=== PATIENT | female | born 1970 | race Two or more races ===

== ENCOUNTER 2024-03-14 17:04 | Inpatient (IN) | payer OTHER, BC ==
[~2024-03-14] VITALS: Ht 167.6 cm; Wt 87.6 kg
[2024-03-14] VITALS (11 sets, daily range): BP systolic 98–119; BP diastolic 44–82; PULSE 78–98; RESP 17–28; TEMP 99–99.3; O2SAT 94–100
[2024-03-14 17:48] LABS: Urine Bacteria None Seen /hpf (None Seen)
[2024-03-14 17:54] LABS: Urine Blood Negative /uL (Negative); Urine Clarity Clear (Clear); Urine Color Light-Yellow (Yellow); Urine Protein, UAD TRACE (Negative); Urine Urobilinogen Normal (Negative); Urine WBC 5 /hpf (0 - 5); Urine pH 6.5 (5.0-9.0)
[2024-03-14 17:57] LABS: Urine Specific Gravity > 1.050 (1.001-1.035)
[2024-03-14] MEDS: HEPARIN DRIP/D5W 100UNITS/ML 250 ML IV SCH (18:00)
--- NOTE | 2024-03-14 18:09 | DVH ---
EXAM: XY CHEST PORTABLE CLINICAL HISTORY: large PE TECHNIQUE: Single AP view of the chest WID: COMPARISON: None FINDINGS: Lines and tubes: None Chest: The heart size and pulmonary vasculature is within normal limits. No pleural effusion or pneumothorax. A few subtle patchy opacities in the left lung The osseous structures are grossly intact. IMPRESSION: A few subtle patchy opacities in the left lung which could be superimposed soft tissues or early mult ifocal pneumonia
[2024-03-14 18:14] LABS: Basophils # (auto) 0 10 ^3/uL (0-0.2); Basophils % (auto) 0.3 % (0.0-2.0); Eosinophils # (auto) 0 10 ^3/uL (0-0.8); Eosinophils % (auto) 0.2 % (0.0-7.0); Hematocrit 36.3 % (36.0-46.0); Hemoglobin 12.2 g/dL (12.2-16.2); Lymphocytes # (auto) 1.2 10 ^3/uL (0.4-5.4); Lymphocytes % (auto) 10.6 % (10.0-50.0); Mean Corpuscular Hemoglobin 29.7 pg (28.0-32.0); Mean Corpuscular Hgb Conc. 33.7 g/dL (32.0-36.0); Mean Corpuscular Volume 88.1 fL (80.0-100.0); Monocytes # (auto) 1.2 10 ^3/uL (0-1.3); Monocytes % (auto) 10.7 % (0.0-12.0); Neutrophils # (auto) 8.6 10 ^3/uL (1.6-8.6); Neutrophils % (auto) 78.2 % (37.0-80.0); Platelet Count (auto) 318 10^3/uL (140-450); Red Blood Cells 4.11 10^6/uL (4.0-5.20); Red Cell Distribution Width 13.3 % (11.8-14.3)
--- NOTE | 2024-03-14 18:26 | ED.PDOC ---
HPI Comments 83-year-old female with past medical history of multiple sclerosis presented from urgent care as on the CT angio, she had bilateral extensive pulmonary embolism. Patient has been having shortness of breath, cough, fever, chills for last five days. She also mentioned associated chest pain that she felt whenever she would was taking deep inspiration. Patient went to urgent Care, initial SpO2 was 83% on room air, patient was connected on oxygen, she was later maintaining 93% on 2 L. Patient's labs done at urgent care today revealed WBC count of 11.2, platelet count of 302 sodium 135, potassium 3.4 BNP 637 troponin i-STAT 0.31(normal range 0 to 0.05 per labs at urgent care). Chest x-ray done at urgent care revealed findings most consistent with pneumonia involving the left upper lobe with a large area of alveolar type infiltrates seen peripherally and anteriorly. CT angiography chest done today revealed : There are bilateral extensive pulmonary embolism. Both lungs showed scattered areas of ground-glass interstitial change and consolidation, most severe in the left lung likely representing regions of pulmonary infarction. The main pulmonary artery is prominent consistent with pulmonary arterial hypertension. She mentioned she is not on any blood thinners, did not have any recent surgery, no history of any brain bleed, brain aneurysm, no history of any melena, hematochezia, or bleeding from any other site. On presenting to the ED, patient was being initial vitals, temperature 98.6, pulse rate 91, respiratory rate 26, blood pressure 134/87, and patient was initially on 5 L of oxygen through nasal cannula, was desaturating and later started on Oxymizer, was maintaining 94% on 10 L. Past medical history Multiple sclerosis Past surgical history no surgeries Social history denied alcohol, smoking, marijuana and any other drug intake Allergic history No known allergies Medication history Rizatriptan, folic acid, rituximab infusion every 6 months Family history PE in mother Lung cancer in father type 1DM in brother Review of system As described in HPI Examination General Appearance: Alert, Oriented X3, Cooperative, No acute distress Respiratory: Clear to auscultation, Normal air movement, on nasal cannula later Oxymizer Cardiovascular: Normal S1, Normal S2 Abdominal: Normal bowel sounds Extremities: No tenderness Neuro: Normal speech and tone ED course 1849 : Dr. Paige, was informed over the phone about the patient condition. Attestation note: Dr. Stanley: I was the supervising attending for this ED encounter. Please see the resident's notes. I was available for questions and consultations. I have personally seen and evaluated this patient. Differential diagnosis: DDx include ACS, unstable angina, anxiety, PE, pneumothroax, neoplasm, cardiac ischemia, COPD, asthma, CHF, pleural effusion, tobacco abuse, pneumonia, hypoxia, hypercapnia, anemia., infection/sepsis., pulmonary edema. Asthma, Cardiac tamponade, infection. MDM: Patient presented with the above HPI.---dyspnea/pulmonary emboli---workup was initiated. patient was found with the above mentioned diagnosis. Patient was given: Patient was placed on supplemental oxygen. Patient ED course and VS have been stabilized. Patient has been reassessed in the ED and remained in a stable condition. Cardiology was consulted who took the patient to the paint laboratory technician for thrombectomy. Pertinent incidental findings were discussed with the patient and/or family. Patient/family voices understanding and is agreeable with plan. Patient has been observed in the ED adequate length of time to insure improvement/stability. Contract Clerk Dr. Abhay coto said that he will start the patient on Angiomax and said to not give heparin at this time patient was admitted to the medicine team for further evaluation and treatment of their presentation. All the reports of any imaging studies that were ordered by myself were reviewed by myself. Chief Complaint: Shortness of Breath Time Seen by MD: 17:34 Primary Care Provider: EMELY Reviewed Notes: Nurses Notes, Medications, Allergies Allergies: Coded Allergies: NO KNOWN ALLERGIES (Unverified , 03/14/24) Home Meds Active Scripts Furosemide (Lasix) 20 Mg Tb, 1 TAB PO QAM, #30 TAB 0 Refills Prov:MO RICCI MD 03/18/24 Apixaban Base (ELIQUIS) 5 Mg Tab, 5 MG PO BID for 30 Days, #60 TAB Prov:MO RICCI MD 03/18/24 Apixaban Base (ELIQUIS) 5 Mg Tab, 10 MG PO BID for 4 Days, #16 TAB Prov:MO RICCI MD 03/18/24 Information Source: Patient, Transfer Record Mode of Arrival: EMS EKG EKG : Comments EKG revealed T-wave inversion in lead III, AVF, V3, V4, V5 Was a procedure done? Was a procedure done?: No CP Differential Dx Differential Diagnosis: Electrolyte Disorder, Heart Failure, Hypoxia, Pulmonary Embolus Differential Diagnosis: CHF Differential Diagnosis: Myocardial Infarction, Pericarditis, Pneumonia, Pulmonary Embolus X-Ray, Labs, Meds, VS Vital Signs Date Time Temp Pulse Resp B/P (MAP) Pulse Ox O2 Delivery O2 Flow Rate FiO2 03/14/24 18:29 98 Oxymizer 10 N/A 03/14/24 18:29 20 98 Oxymizer 10 N/A 03/14/24 18:29 98 Oxymizer 10.0 03/14/24 18:27 90 24 115/63 (80) 99 03/14/24 18:09 93 03/14/24 18:08 80 Non-Rebreather 15 N/A 03/14/24 18:02 100 28 115/63 (80) 78 03/14/24 17:31 100 03/14/24 17:06 98.6 91 26 134/64 (87) 97 Lab Test 03/14/24 18:09 03/14/24 17:59 03/14/24 17:32 Range/Units Blood Gas Specimen Type Arterial Blood Gas Sample Site Right radial Blood Gas Patient Temperature 37.0 Arterial Blood Date Drawn [id number] Arterial Blood pH 7.525 H 7.350-7.450 Arterial Blood Partial Pressure CO2 26.5 L 32.0-45.0 mmHg Arterial Blood Partial Pressure O2 43.3 *L 83.0-108.0 mmHg Arterial Blood HCO3 21.4 21.0-28.0 mmol/L Arterial Blood Oxygen Saturation 82.7 *L 94.0-98.0 % Arterial Blood Base Excess -0.1 -2.0-3.0 mmol/L Arterial Blood Oxyhemoglobin 81.9 L 94.0-98.0 % Arterial Blood Carboxyhemoglobin 0.5 0.5-1.5 % Arterial Blood Methemoglobin 0.5 0.0-1.5 % Earl Test Yes Blood Gas Total Hemoglobin 12.80 12.0-16.0 g/dL Blood Gas Modality Room air FiO2 % 21.0 Blood Gas Critical Value Read Back Yes Blood Gas Notified Whom Dr. mae Blood Gas Notified Time [id number] Blood Gas Notified By Amirah noe White Blood Count 11.0 H 4.4-10.8 10^3/uL Red Blood Count 4.11 4.0-5.20 10^6/uL Hemoglobin 12.2 12.2-16.2 g/dL Hematocrit 36.3 36.0-46.0 % Mean Corpuscular Volume 88.1 80.0-100.0 fL Mean Corpuscular Hemoglobin 29.7 28.0-32.0 pg Mean Corpuscular Hemoglobin Concent 33.7 32.0-36.0 g/dL Red Cell Distribution Width 13.3 11.8-14.3 % Platelet Count 318 140-450 10^3/uL Mean Platelet Volume 7.6 6.9-10.8 fL Neutrophils (%) (Auto) 78.2 37.0-80.0 % Lymphocytes (%) (Auto) 10.6 10.0-50.0 % Monocytes (%) (Auto) 10.7 0.0-12.0 % Eosinophils (%) (Auto) 0.2 0.0-7.0 % Basophils (%) (Auto) 0.3 0.0-2.0 % Neutrophils # (Auto) 8.6 1.6-8.6 10 ^3/uL Lymphocytes # (Auto) 1.2 0.4-5.4 10 ^3/uL Monocytes # (Auto) 1.2 0-1.3 10 ^3/uL Eosinophils # (Auto) 0 0-0.8 10 ^3/uL Basophils # (Auto) 0 0-0.2 10 ^3/uL Nucleated Red Blood Cells 0.0 % Prothrombin Time 12.8 H 9.3-11.8 sec Prothrombin Time INR 1.23 H 0.9-1.15 Activated Partial Thromboplast Time 35.1 H 24.5-34.5 SEC D-Dimer, Quantitative 4.30 H 0.0-0.49 mg/L FEU Sodium Level 140 136-145 mmol/L Potassium Level 3.6 3.5-5.1 mmol/L Chloride Level 106 98-107 mmol/L Carbon Dioxide Level 23 20-31 mmol/L Anion Gap 11 5-15 Blood Urea Nitrogen 10 9-23 mg/dL Creatinine 0.55 0.550-1.02 mg/dL Glomerular Filtration Rate Calc 109 >90 mL/min BUN/Creatinine Ratio 18.2 10.0-20.0 Serum Glucose 109 H 74-106 mg/dL Calcium Level 8.7 8.7-10.4 mg/dL Magnesium Level 2.2 1.6-2.6 mg/dL Total Bilirubin 0.7 0.2-1.0 mg/dL Aspartate Amino Transferase (AST) 40 13-40 U/L Alanine Aminotransferase (ALT) 36 7-40 U/L Alkaline Phosphatase 54 46-116 U/L Troponin I High Sensitivity 150 *H </=34 ng/L B-Type Natriuretic Peptide 436.94 0-100 pg/mL Total Protein 5.3 L 5.7-8.2 g/dL Albumin 3.6 3.2-4.8 g/dL Urine Color Light-yellow Yellow Urine Clarity Clear Clear Urine pH 6.5 5.0-9.0 Urine Specific Otto > 1.050 H 1.001-1.035 Urine Protein Trace H Negative Urine Ketones Negative Negative Urine Blood Negative Negative /uL Urine Nitrite Negative Negative Urine Bilirubin Negative Negative Urine Urobilinogen Normal Negative mg/dL Urine Leukocyte Esterase Negative Negative /uL Urine RBC 1 0 - 4 /hpf Urine WBC 5 0 - 5 /hpf Urine Squamous Epithelial Cells Few <5 /hpf Urine Bacteria None seen None Seen /hpf Urine Glucose Normal Normal mg/dL Time of 1ST Reevaluation: 18:10 ([address] Andrade radiologist, mentioned he left the hospital and we will be available on Sunday.We called on-call machine set up operator paper goods, Dr. Persaud. Mentions that he does not do mechanical thrombectomy. Called Dr. Esteban, mentioned she is not radiosonde operator. Called Dr. Foreman, [place] Reevaluation 1ST: Worsened Time of 2ND Reevaluation: 18:15 (Dr. Gonzáles, machine set up operator paper goods at bedside) Reevaluation 2ND: Unchanged Time of 3RD Reevaluation: 18:57 (Patient planned for mechanical thrombectomy by Dr Gonzáles. ) Reevaluation 3RD: Unchanged Patient Education/Counseling: Diagnosis, Treatment Family Education/Counseling: No Family Present Comments Patient presented with the chest pain, shortness of breath, fever, cough. workup was initiated. Notes from the urgent care were reviewed. CT angio report from urgent care revealed pulmonary embolism. Patient already received 80 mg Lovenox in the [facility] as per records. Patient was initially on nasal cannula but was desaturating. She was started on Oxymizer. We called Dr. Andrade radiologist, mentioned he left the hospital and we will be available on Sunday. We called on-call machine set up operator paper goods, Dr. Persaud. Mentions that he does not do mechanical thrombectomy. Called Dr. Esteban, mentioned she is not radiosonde operator. Called Dr. Foreman, he is out of the country. Later Dr. gonzáles was contacted. Contract Clerk Dr Gonzáles came at bedside. Lower extremity Doppler was negative for DVT. Patient was planned for mechanical thrombectomy. Patient has been observed in the ED adequate length of time to insure improvement/stability. patient was admitted to the medicine team for further evaluation and treatment of their presentation. All the reports of any imaging studies that were ordered by myself were reviewed by myself. Departure 1 Departure Time of Disposition: 18:31 Impression: Primary Impression: Pulmonary embolism Additional Impressions: Acute hypoxic respiratory failure Elevated troponin Disposition: ADMITTED INPATIENT Admit to: ICU Condition: Critical e-Prescriptions Furosemide (Lasix) 20 Mg Tb 1 TAB PO QAM, #30 TAB 0 Refills Prov: MO RICCI MD 03/18/24 Apixaban Base (ELIQUIS) 5 Mg Tab 5 MG PO BID for 30 Days, #60 TAB Prov: MO RICCI MD 03/18/24 Apixaban Base (ELIQUIS) 5 Mg Tab 10 MG PO BID for 4 Days, #16 TAB Prov: MO RICCI MD 03/18/24 Discharged With: Self Critical Care Note Critical Care Time?: Yes (1 hr-critical care time only) Stability Stability form required: No Heart Score Heart Score: Heart Score Response (Comments) Value History Highly Suspicious 2 EKG Repolarization Disturb 1 Age 45-64 1 Risk Factors No known risk factors 0 Troponin >3 x's Normal limit 2 Total 6 GENARO MAE Mar 14, 2024 18:26 HARLEEN STANLEY DO Mar 18, 2024 23:11
[2024-03-14 18:27] LABS: Alanine Aminotransferase 36 U/L (7-40); Alkaline Phosphatase 54 U/L (46-116); Anion Gap 11 (5-15); Blood Urea Nitrogen 10 mg/dL (9-23); Calcium 8.7 mg/dL (8.7-10.4); Carbon Dioxide 23 mmol/L (20-31); Chloride 106 mmol/L (98-107); Glucose 109 mg/dL (74-106); Magnesium 2.2 mg/dL (1.6-2.6); Potassium 3.6 mmol/L (3.5-5.1); Sodium 140 mmol/L (136-145)
[2024-03-14 18:28] LABS: Albumin 3.6 g/dL (3.2-4.8); Aspartate Aminotransferase 40 U/L (13-40); BUN/Creatinine Ratio 18.2 (10.0-20.0); Bilirubin, Total 0.7 mg/dL (0.2-1.0); Total Protein 5.3 g/dL (5.7-8.2)
[2024-03-14 18:38] LABS: INR 1.23 (0.9-1.15); Partial Thromboplastin Time 35.1 SEC (24.5-34.5); Prothrombin Time 12.8 sec (9.3-11.8)
--- NOTE | 2024-03-14 18:48 | DVH ---
Bilateral lower extremity venous duplex Clinical History: rule out DVT Comparison: None Technique: Duplex Doppler evaluation of the deep venous systems of both lower extremities from the common femora l veins to the popliteal veins including color Doppler and spectral/pulsed waveform analysis was perf ormed. Findings: RIGHT SIDE: The common femoral vein demonstrates appropriate compressibility and waveform variability. There is compressibility/patency of the great saphenous vein at the proximal thigh. The femoral vein demonstrates appropriate compressibility and waveform variability. The deep femoral vein demonstrates appropriate compressibility and waveform variability. The popliteal vein demonstrates appropriate compressibility and waveform variability. There is normal compressibility at the tibioperoneal trunk. LEFT SIDE: The common femoral vein demonstrates appropriate compressibility and waveform variability. There is compressibility/patency of the great saphenous vein at the proximal thigh. The femoral vein demonstrates appropriate compressibility and waveform variability. The deep femoral vein demonstrates appropriate compressibility and waveform variability. The popliteal vein demonstrates appropriate compressibility and waveform variability. There is normal compressibility at the tibioperoneal trunk. Impression: 1. No right or left femoropopliteal venous thrombosis. HS:Y
--- NOTE | 2024-03-14 19:14 | DVHINCON2 ---
Date Seen: Mar 14, [address] Hernández Reason for Consultation Pulmonary embolism History of Present Illness 83-year-old lady who has a history of one week with shortness of breath. She was seen in urgent Care and was sent for an urgent CT angio. She was found to have extensive bilateral pulmonary embolism. She has been progressively short of breath and has been dyspneic with associated chest pressure. She has found it difficult to breathe. No previous history of pulmonary embolism. No trauma to her lower extremities. No evidence or history of hypercoagulability. No history of rheumatologic disorders or collagen vascular disease. No history of autoimmune disorders. No previous history of pulmonary embolization and or chronic thromboembolic pulmonary hypertension. No recent swelling of her lower extremities. She is a nondrinker and a nonsmoker no recent bleeding. Past Medical History Patient has a history of multiple sclerosis and she gets infusions twice a year. No history of diabetes hypertension congestive heart failure cardiac pulmonary or other abnormalities. Past Surgical History None Family History No significant family history Social History Nondrinker nonsmoker. Patient states she is Allergies: Coded Allergies: NO KNOWN ALLERGIES (Unverified , 03/14/24) Current Medications Current Medications Medications (Trade) Dose Ordered Sig/Coby Route PRN Reason Start Time Stop Time Status Last Admin Heparin Sodium/ Dextrose 250 ml @ 15 mls/hr [id number] IV 03/14/24 18:00 Review of Systems Review of systems otherwise noncontributory. No history of neurological impairment. Cardiac and respiratory as noted above. Hematologically oncologic respiratory as mentioned. Noted history from a neurologic standpoint of multiple sclerosis. Vital Signs Vital Signs Date Time Temp Pulse Resp B/P (MAP) Pulse Ox O2 Delivery O2 Flow Rate FiO2 03/14/24 18:29 20 98 Oxymizer 10 N/A 03/14/24 18:27 90 115/63 (80) 03/14/24 17:06 98.6 Physical Exam Her blood pressure is 115/63 with an O2 saturation of 93 on an Oxymizer. Her pulse is 90. HEENT examination is otherwise unremarkable already well hydrated. Strabismus of the left eye. Moderate jugular distention. No carotid bruits. Patient is slightly tachypneic. Heart exam reveals a pronounced P2 component. No significant murmurs. Ventricular lift not noted. 1/6 systolic ejection murmur at left sternal border. Abdominal examination is unremarkable extremities show adequate perfusion without clubbing or cyanosis no significant edema. Neurologically the patient is intact without focal neurologic deficits. Integumentary is otherwise within normal limits. No evidence for swelling of the lower extremities. Labs/Diagnostic Data EKG shows a sinus rhythm with inferior lateral ST segment changes suggesting ischemia There is a CT scan showing extensive bilateral pulmonary emboli. The CTA was obtained as an outpatient. Labs Test 03/14/24 17:59 03/14/24 17:32 Range/Units White Blood Count 11.0 H 4.4-10.8 10^3/uL Red Blood Count 4.11 4.0-5.20 10^6/uL Hemoglobin 12.2 12.2-16.2 g/dL Hematocrit 36.3 36.0-46.0 % Mean Corpuscular Volume 88.1 80.0-100.0 fL Mean Corpuscular Hemoglobin 29.7 28.0-32.0 pg Mean Corpuscular Hemoglobin Concent 33.7 32.0-36.0 g/dL Red Cell Distribution Width 13.3 11.8-14.3 % Platelet Count 318 140-450 10^3/uL Mean Platelet Volume 7.6 6.9-10.8 fL Neutrophils (%) (Auto) 78.2 37.0-80.0 % Lymphocytes (%) (Auto) 10.6 10.0-50.0 % Monocytes (%) (Auto) 10.7 0.0-12.0 % Eosinophils (%) (Auto) 0.2 0.0-7.0 % Basophils (%) (Auto) 0.3 0.0-2.0 % Neutrophils # (Auto) 8.6 1.6-8.6 10 ^3/uL Lymphocytes # (Auto) 1.2 0.4-5.4 10 ^3/uL Monocytes # (Auto) 1.2 0-1.3 10 ^3/uL Eosinophils # (Auto) 0 0-0.8 10 ^3/uL Basophils # (Auto) 0 0-0.2 10 ^3/uL Nucleated Red Blood Cells 0.0 % Prothrombin Time 12.8 H 9.3-11.8 sec Prothrombin Time INR 1.23 H 0.9-1.15 Activated Partial Thromboplast Time 35.1 H 24.5-34.5 SEC D-Dimer, Quantitative 4.30 H 0.0-0.49 mg/L FEU Sodium Level 140 136-145 mmol/L Potassium Level 3.6 3.5-5.1 mmol/L Chloride Level 106 98-107 mmol/L Carbon Dioxide Level 23 20-31 mmol/L Anion Gap 11 5-15 Blood Urea Nitrogen 10 9-23 mg/dL Creatinine 0.55 0.550-1.02 mg/dL Glomerular Filtration Rate Calc 109 >90 mL/min BUN/Creatinine Ratio 18.2 10.0-20.0 Serum Glucose 109 H 74-106 mg/dL Calcium Level 8.7 8.7-10.4 mg/dL Magnesium Level 2.2 1.6-2.6 mg/dL Total Bilirubin 0.7 0.2-1.0 mg/dL Aspartate Amino Transferase (AST) 40 13-40 U/L Alanine Aminotransferase (ALT) 36 7-40 U/L Alkaline Phosphatase 54 46-116 U/L Troponin I High Sensitivity 150 *H </=34 ng/L B-Type Natriuretic Peptide 436.94 0-100 pg/mL Total Protein 5.3 L 5.7-8.2 g/dL Albumin 3.6 3.2-4.8 g/dL Urine Color Light-yellow Yellow Urine Clarity Clear Clear Urine pH 6.5 5.0-9.0 Urine Specific [place] > 1.050 H 1.001-1.035 Urine Protein Trace H Negative Urine Ketones Negative Negative Urine Blood Negative Negative /uL Urine Nitrite Negative Negative Urine Bilirubin Negative Negative Urine Urobilinogen Normal Negative mg/dL Urine Leukocyte Esterase Negative Negative /uL Urine RBC 1 0 - 4 /hpf Urine WBC 5 0 - 5 /hpf Urine Squamous Epithelial Cells Few <5 /hpf Urine Bacteria None seen None Seen /hpf Urine Glucose Normal Normal mg/dL Assessment Extensive bilateral pulmonary emboli. Patient has been given Lovenox at around 3:00 a.m. this afternoon. 80 mg subcutaneously. There is no evidence for a DVT. Patient was spoken to regarding possible thrombectomy. Associated history of multiple sclerosis controlled. Plan/Recommendation I did discuss the case in detail with patient. She agrees on thrombectomy. Prefers that over thrombolytic therapy. We will call in finishing lab technician and proceed with pulmonary thrombectomy. Approximately 45-55 minutes were undertaken in coordinating the care and evaluating the patient. The finishing lab technician crew was called in. In artery rib was called in for urgent thrombectomy. Plan discussed with: Patient Date of Service: Mar 14, 2024 Billing Provider: MONICA MORGAN Sr., MD Cardiology Common Codes: 79699-[id number] INP/OBS CARE (High) Cardiology Secondary Visit Cod: [id number] CARE PLAN ADDL 30MIN MONICA MORGAN Sr., MD Mar 14, 2024 19:14
[2024-03-14] MEDS: IODIXANOL 320MG/ML 100ML BTL IV ONE (19:18)
[2024-03-14] MEDS: HEPARIN IN NS 1000Units/500mL 1,500 ML ONE (19:18)
--- NOTE | 2024-03-14 19:26 | DVHHP2 ---
History of Present Illness Reason for Visit: shortness of breath History of Present Illness 83-year-old female with past medical history of multiple sclerosis presented from urgent care as on the CT angio, she had bilateral extensive pulmonary embolism. Patient has been having shortness of breath, cough, fever, chills for last five days. She also mentioned associated chest pain that she felt whenever she would was taking deep inspiration. Patient went to urgent Care, initial SpO2 was 83% on room air, patient was connected on oxygen, she was later maintaining 93% on 2 L. Patient's labs done at urgent care today revealed WBC count of 11.2, platelet count of 302 sodium 135, potassium 3.4 BNP 637 troponin i-STAT 0.31(normal range 0 to 0.05 per labs at urgent care). Chest x-ray done at urgent care revealed findings most consistent with pneumonia involving the left upper lobe with a large area of alveolar type infiltrates seen peripherally and anteriorly. CT angiography chest done today revealed : There are bilateral extensive pulmonary embolism. Both lungs showed scattered areas of ground-glass interstitial change and consolidation, most severe in the left lung likely representing regions of pulmonary infarction. The main pulmonary artery is prominent consistent with pulmonary arterial hypertension. She mentioned she is not on any blood thinners, did not have any recent surgery, no history of any brain bleed, brain aneurysm, no history of any melena, hematochezia, or bleeding from any other site. On presenting to the ED, patient was being initial vitals, temperature 98.6, pu lse rate 91, respiratory rate 26, blood pressure 134/87, and patient was initially on 5 L of oxygen through nasal cannula, was desaturating and later started on Oxymizer, was maintaining 94% on 10 L. Patient was seen in STAT Cardiology consult, was taken emergently to the liaison inspection laboratory assistant for Mechanical Thrombectomy. Past Medical History Multiple Sclerosis Review of Systems Constitutional: No: Fever, Chills, Sweats, Weakness, Malaise, Other Eyes: No: Pain, Vision change, Conjunctivae inflammation, Eyelid inflammation, Other, Redness ENT: No: Ear pain, Ear discharge, Nose pain, Nose discharge, Nose congestion, Mouth pain, Mouth swelling, Throat pain, Throat swelling, Other Respiratory: Shortness of breath, SOB with excertion, Wheezing Cardiovascular: No: Chest Pain, Palpitations, Orthopnea, Paroxysmal Noc. Dyspnea, Edema, Lt Headedness, Other Gastrointestinal: No: Nausea, Vomiting, Abdominal Pain, Diarrhea, Constipation, Melena, Hematochezia, Other Genitourinary: No Dysuria, No Frequency, No Incontinence, No Hematuria, No Retention, No Other Musculoskeletal: No: other, neck pain, shoulder pain, arm pain, back pain, hand pain, leg pain, foot pain Skin: No: Rash, Lesions, Jaundice, Bruising, Other Neurological: No: Weakness, Numbness, Incoordination, Change in speech, Confusion, Seizures, Other Allergies: Coded Allergies: NO KNOWN ALLERGIES (Unverified , 03/14/24) Medications Current Medications Medications Dose Ordered Sig/Coby Route Start Time Stop Time Status Last Admin Dose Admin Heparin Sodium/ Dextrose 250 ml @ 15 mls/hr [id number] IV 03/14/24 18:00 Exam Vital Signs Vital Signs Date Time Temp Pulse Resp B/P (MAP) Pulse Ox O2 Delivery O2 Flow Rate FiO2 03/14/24 18:29 20 98 Oxymizer 10 N/A 03/14/24 18:27 90 115/63 (80) 03/14/24 17:06 98.6 General Appearance: Alert, Oriented X3, Cooperative, moderate distress HEENT: Atraumatic, PERRLA, EOMI Respiratory: Other (Wheezing) Cardiovascular: Regular rate, Normal S1, Normal S2, No murmurs Abdominal: Normal bowel sounds, Soft Extremities: No clubbing Psych/Mental Status: Mental status NL Labs/Xrays Labs Test 03/14/24 17:59 03/14/24 17:32 Range/Units White Blood Count 11.0 H 4.4-10.8 10^3/uL Red Blood Count 4.11 4.0-5.20 10^6/uL Hemoglobin 12.2 12.2-16.2 g/dL Hematocrit 36.3 36.0-46.0 % Mean Corpuscular Volume 88.1 80.0-100.0 fL Mean Corpuscular Hemoglobin 29.7 28.0-32.0 pg Mean Corpuscular Hemoglobin Concent 33.7 32.0-36.0 g/dL Red Cell Distribution Width 13.3 11.8-14.3 % Platelet Count 318 140-450 10^3/uL Mean Platelet Volume 7.6 6.9-10.8 fL Neutrophils (%) (Auto) 78.2 37.0-80.0 % Lymphocytes (%) (Auto) 10.6 10.0-50.0 % Monocytes (%) (Auto) 10.7 0.0-12.0 % Eosinophils (%) (Auto) 0.2 0.0-7.0 % Basophils (%) (Auto) 0.3 0.0-2.0 % Neutrophils # (Auto) 8.6 1.6-8.6 10 ^3/uL Lymphocytes # (Auto) 1.2 0.4-5.4 10 ^3/uL Monocytes # (Auto) 1.2 0-1.3 10 ^3/uL Eosinophils # (Auto) 0 0-0.8 10 ^3/uL Basophils # (Auto) 0 0-0.2 10 ^3/uL Nucleated Red Blood Cells 0.0 % Prothrombin Time 12.8 H 9.3-11.8 sec Prothrombin Time INR 1.23 H 0.9-1.15 Activated Partial Thromboplast Time 35.1 H 24.5-34.5 SEC D-Dimer, Quantitative 4.30 H 0.0-0.49 mg/L FEU Sodium Level 140 136-145 mmol/L Potassium Level 3.6 3.5-5.1 mmol/L Chloride Level 106 98-107 mmol/L Carbon Dioxide Level 23 20-31 mmol/L Anion Gap 11 5-15 Blood Urea Nitrogen 10 9-23 mg/dL Creatinine 0.55 0.550-1.02 mg/dL Glomerular Filtration Rate Calc 109 >90 mL/min BUN/Creatinine Ratio 18.2 10.0-20.0 Serum Glucose 109 H 74-106 mg/dL Calcium Level 8.7 8.7-10.4 mg/dL Magnesium Level 2.2 1.6-2.6 mg/dL Total Bilirubin 0.7 0.2-1.0 mg/dL Aspartate Amino Transferase (AST) 40 13-40 U/L Alanine Aminotransferase (ALT) 36 7-40 U/L Alkaline Phosphatase 54 46-116 U/L Troponin I High Sensitivity 150 *H </=34 ng/L B-Type Natriuretic Peptide 436.94 0-100 pg/mL Total Protein 5.3 L 5.7-8.2 g/dL Albumin 3.6 3.2-4.8 g/dL Urine Color Light-yellow Yellow Urine Clarity Clear Clear Urine pH 6.5 5.0-9.0 Urine Specific [place] > 1.050 H 1.001-1.035 Urine Protein Trace H Negative Urine Ketones Negative Negative Urine Blood Negative Negative /uL Urine Nitrite Negative Negative Urine Bilirubin Negative Negative Urine Urobilinogen Normal Negative mg/dL Urine Leukocyte Esterase Negative Negative /uL Urine RBC 1 0 - 4 /hpf Urine WBC 5 0 - 5 /hpf Urine Squamous Epithelial Cells Few <5 /hpf Urine Bacteria None seen None Seen /hpf Urine Glucose Normal Normal mg/dL Assessment/Plan Assessment/Plan # Acute Hypoxic Resp Failure - Titrate Oxygen as tolerated - On 10L oxygen # Bilateral Pulm Embolism - For Mechanical Thrombectomy # M.S - Cont outpatient treatment # Goals of care discussion >18 mins FULL CODE Plan discussed with: Patient My Orders Orders - MO RICCI MD Procedure Category Date Status Time Admit ADMIT 03/14/24 Transmitted 19:19 Code Status CODE 03/14/24 Transmitted 19:19 Vital Signs [facility] 03/14/24 Transmitted 19:19 Review Orders With [facility] 03/14/24 Transmitted Adm. 19:19 Regular Diet DIET 03/15/24 Transmitted Breakfast Sodium Chloride Lock PHA 03/14/24 Transmitted (Saline Lock Ns) 22:00 Lorazepam Tablet PHA 03/14/24 Transmitted (Ativan Tablet) 19:30 Acetaminophen Tablet [facility] 03/14/24 Transmitted (Tylenol Tablet) 19:30 Notify Of Changes [facility] 03/14/24 Transmitted From Base 19:19 Advance Directive [facility] 03/14/24 Transmitted 19:19 Echo 2d Mode Cardiac US 03/14/24 Transmitted DOP 19:19 Patient Condition ORDERS 03/14/24 Transmitted 19:19 Allergies [facility] 03/14/24 Transmitted 19:19 Hydrocodone-Acet [facility] 03/14/24 Transmitted 5/325mg Tab ([place] 19:30 Morphine 2mg Iv Q4hprn [facility] 03/14/24 Transmitted 19:30 Nitroglycerin [facility] 03/14/24 Transmitted Sublingual (Ntrostat 19:30 Morphine Sulfate [facility] 03/14/24 Transmitted Injection 19:30 Stat Ekg For Chest [facility] 03/14/24 Transmitted Pain 19:19 Notify Of Changes [facility] 03/14/24 Transmitted From Base 19:19 University Demonstrator For [facility] 03/14/24 Transmitted 24 Hours 19:19 Emergency Dysrhythmia [facility] 03/14/24 Transmitted Protocol 19:19 Rhythm Strips Once KIRSTEN 03/14/24 Transmitted Every Shift 19:19 Oxygen By Nasal RT 03/14/24 Transmitted Cannula 19:19 Complete Blood Count LAB 03/15/24 Verified 04:00 Basic Metabolic Panel LAB 03/15/24 Verified 04:00 B-Type Natriuretic LAB 03/15/24 Verified Peptide 04:00 Thyroid Stimulating LAB 03/15/24 Verified Hormone 04:00 Date of Service: Mar 14, 2024 Billing Provider: MO RICCI MD Common Visit Codes: 14016-QGHMMMY INP/OBS CARE (HIGH) Secondary Visit Codes: 45284-RGGRRGID CARE PLAN 30 MINUTES MO RICCI MD Mar 14, 2024 19:26
[2024-03-14] MEDS ORDERED: MORPHINE SULFATE INJ 2 MG/ml SYRG IV PRN ×2 (19:30)
[2024-03-14] MEDS ORDERED: HYDROcodone-ACET 5/325MG TAB PO PRN (19:30)
[2024-03-14] MEDS ORDERED: NITROGLYCERIN 0.4 MG SL TAB SL PRN (19:30)
[2024-03-14] MEDS ORDERED: ALBUTEROL SULF 2.5 MG/0.5ML(0.5%) NEB SOLN NEB PRN (19:30)
[2024-03-14] MEDS ORDERED: LORazepam 0.5 MG TAB PO PRN (19:30)
[2024-03-14] MEDS ORDERED: IPRATROPIUM BROM 0.5 MG/2.5ML INH SOL NEB PRN (19:30)
[2024-03-14] MEDS: fentaNYL CITRATE 100 MCG/2 ML VL ONE (19:33)
[2024-03-14] MEDS: MIDAZOLAM HCL 2MG/2ML 2ml VIAL (1mg/ml) ONE (19:33)
[2024-03-14] MEDS: LIDOCAINE 2%HCL (LOCAL ANESTH.) INJ 20ML MDV ONE (19:33)
[2024-03-14] MEDS: SODIUM CHL 0.9% 50 ML ONE ×2 (19:33→20:34)
[2024-03-14] MEDS: ANGIOMAX 250 MG VIAL IV ONE ×2 (19:33→20:34)
[2024-03-14 19:58] LABS: Base Excess -0.1 mmol/L (-2.0-3.0)
--- NOTE | 2024-03-14 20:00 | DVHINCON2 ---
Date of service: Mar 14, 2024 Referring Physician Peter Lock MD Reason for Consultation Acute hypoxic respiratory failure and bilateral pulmonary embolism History of Present Illness A 53-year-old woman with past medical history of multiple sclerosis who presented from urgent care with CT angio evidence of bilateral extensive pulmonary embolism. Patient w/ ongoing shortness of breath, cough, fever, chills for the past 5 days. She also noted associated chest pain with deep inspiration. At initial SpO2 was 83% on room air, later maintaining 93% on 2 L. Labs at urgent care revealed WBC count of 11.2, platelet count of 302; sodium 135, potassium 3.4; BNP 637, troponin i-STAT 0.31(normal range 0 to 0.05 per labs at urgent care). CXR at urgent care most consistent with pneumonia involving the left upper lobe with a large area of alveolar type infiltrates seen peripherally and anteriorly. CT angiography revealed bilateral extensive pulmonary embolism. Both lungs showed scattered areas of ground-glass interstitial change and consolidation, most severe in the left lung likely representing regions of pulmonary infarction. The main pulmonary artery is prominent, consistent with pulmonary arterial hypertension. Patient was admitted for further care and pulmonary consultation is requested for evaluation and management due to these findings. Review of Systems: 14-point review of systems negative unless otherwise noted above. Past Medical History: Multiple Sclerosis - gets infusions twice a year. Past Surgical History: None. Medications: Reviewed. Allergies: No known drug allergies. Family History: No family history of premature CAD. No family history of lung disorders. Social History: Nonsmoker. No alcohol or illicit drug use Allergies: Coded Allergies: NO KNOWN ALLERGIES (Unverified , 03/14/24) Current Medications Current Medications Medications (Trade) Dose Ordered Sig/Coby Route PRN Reason Start Time Stop Time Status Last Admin Heparin Sodium/ Dextrose 250 ml @ 15 mls/hr [id number] IV 03/14/24 18:00 Sodium Chloride (Saline Lock Ns) 10 ml Q8HR IV 03/14/24 22:00 Lorazepam (Ativan Tablet) 0.5 mg Q6HP PRN PO ANXIETY 03/14/24 19:30 Acetaminophen (Tylenol Tablet) 650 mg Q6HP PRN PO PAIN SCALE 1-3 OR TEMP>100.4 03/14/24 19:30 Acetaminophen/ Hydrocodone Bitart ([place] 5/325MG Tab) 1 tab Q4HP PRN PO MODERATE PAIN (4-6 PAIN SCALE) 03/14/24 19:30 Morphine Sulfate 2 mg Q4HPRN PRN IV SEVERE PAIN (7-10 PAIN SCALE) 03/14/24 19:30 Nitroglycerin (Ntrostat Sublingual) 0.4 mg Q5MINP PRN SL FOR CHEST PAIN 03/14/24 19:30 Morphine Sulfate 2 mg Q30M PRN IV FOR CHEST PAIN 03/14/24 19:30 Albuterol (Ventolin Medneb) 2.5 mg Q6HPRN PRN NEB SHORTNESS OF BREATH 03/14/24 19:30 Ipratropium [place] (Atrovent Medneb) 0.5 mg Q6HPRN PRN NEB SHORTNESS OF BREATH 03/14/24 19:30 Furosemide (Lasix Injection) 40 mg DAILY IV 03/15/24 10:00 Vital Signs Vital Signs Date Time Temp Pulse Resp B/P (MAP) Pulse Ox O2 Delivery O2 Flow Rate FiO2 03/14/24 18:29 20 98 Oxymizer 10 N/A 03/14/24 18:27 90 115/63 (80) 03/14/24 17:06 98.6 Physical Exam Gen.: Patient lying in bed in no apparent distress. On supplemental oxygen. Head: Normocephalic, atraumatic. Eyes: EOMI/PERRLA. Ears: Normal hearing. Normal anatomy. Neck/trachea: Trachea midline, supple. Nose: Normal external anatomy. Mouth: Moist mucous membranes. Chest: Decreased air entry bilaterally. No wheezing or rhonchi. Cardiovascular: Positive S1, positive S2. Regular rate and rhythm. Abdomen: Positive bowel sounds in all 4 quadrants. Soft, non-tender, non- distended. : Deferred. Rectal: Deferred. Skin: Warm, dry. Intact. Extremities: 2+ radial pulses bilaterally. No lower extremity edema. Neuro: Awake, alert, oriented x3. No gross motor or sensory deficits. Cranial nerves II through XII intact. Gait not assessed. Labs/Diagnostic Data Labs Test 03/14/24 18:09 03/14/24 17:59 03/14/24 17:32 Range/Units Blood Gas Specimen Type Arterial Blood Gas Sample Site Right radial Blood Gas Patient Temperature 37.0 Arterial Blood Date Drawn Arterial Blood pH 7.525 H 7.350-7.450 Arterial Blood Partial Pressure CO2 26.5 L 32.0-45.0 mmHg Arterial Blood Partial Pressure O2 43.3 *L 83.0-108.0 mmHg Arterial Blood HCO3 21.4 21.0-28.0 mmol/L Arterial Blood Oxygen Saturation 82.7 *L 94.0-98.0 % Arterial Blood Base Excess -0.1 -2.0-3.0 mmol/L Arterial Blood Oxyhemoglobin 81.9 L 94.0-98.0 % Arterial Blood Carboxyhemoglobin 0.5 0.5-1.5 % Arterial Blood Methemoglobin 0.5 0.0-1.5 % Earl Test Yes Blood Gas Total Hemoglobin 12.80 12.0-16.0 g/dL Blood Gas Modality Room air FiO2 % 21.0 Blood Gas Critical Value Read Back Yes Blood Gas Notified Whom Dr. mae Blood Gas Notified Time [id number] Blood Gas Notified By Iron Assorter alisha noe White Blood Count 11.0 H 4.4-10.8 10^3/uL Red Blood Count 4.11 4.0-5.20 10^6/uL Hemoglobin 12.2 12.2-16.2 g/dL Hematocrit 36.3 36.0-46.0 % Mean Corpuscular Volume 88.1 80.0-100.0 fL Mean Corpuscular Hemoglobin 29.7 28.0-32.0 pg Mean Corpuscular Hemoglobin Concent 33.7 32.0-36.0 g/dL Red Cell Distribution Width 13.3 11.8-14.3 % Platelet Count 318 140-450 10^3/uL Mean Platelet Volume 7.6 6.9-10.8 fL Neutrophils (%) (Auto) 78.2 37.0-80.0 % Lymphocytes (%) (Auto) 10.6 10.0-50.0 % Monocytes (%) (Auto) 10.7 0.0-12.0 % Eosinophils (%) (Auto) 0.2 0.0-7.0 % Basophils (%) (Auto) 0.3 0.0-2.0 % Neutrophils # (Auto) 8.6 1.6-8.6 10 ^3/uL Lymphocytes # (Auto) 1.2 0.4-5.4 10 ^3/uL Monocytes # (Auto) 1.2 0-1.3 10 ^3/uL Eosinophils # (Auto) 0 0-0.8 10 ^3/uL Basophils # (Auto) 0 0-0.2 10 ^3/uL Nucleated Red Blood Cells 0.0 % Prothrombin Time 12.8 H 9.3-11.8 sec Prothrombin Time INR 1.23 H 0.9-1.15 Activated Partial Thromboplast Time 35.1 H 24.5-34.5 SEC D-Dimer, Quantitative 4.30 H 0.0-0.49 mg/L FEU Sodium Level 140 136-145 mmol/L Potassium Level 3.6 3.5-5.1 mmol/L Chloride Level 106 98-107 mmol/L Carbon Dioxide Level 23 20-31 mmol/L Anion Gap 11 5-15 Blood Urea Nitrogen 10 9-23 mg/dL Creatinine 0.55 0.550-1.02 mg/dL Glomerular Filtration Rate Calc 109 >90 mL/min BUN/Creatinine Ratio 18.2 10.0-20.0 Serum Glucose 109 H 74-106 mg/dL Calcium Level 8.7 8.7-10.4 mg/dL Magnesium Level 2.2 1.6-2.6 mg/dL Total Bilirubin 0.7 0.2-1.0 mg/dL Aspartate Amino Transferase (AST) 40 13-40 U/L Alanine Aminotransferase (ALT) 36 7-40 U/L Alkaline Phosphatase 54 46-116 U/L Troponin I High Sensitivity 150 *H </=34 ng/L B-Type Natriuretic Peptide 436.94 0-100 pg/mL Total Protein 5.3 L 5.7-8.2 g/dL Albumin 3.6 3.2-4.8 g/dL Urine Color Light-yellow Yellow Urine Clarity Clear Clear Urine pH 6.5 5.0-9.0 Urine Specific [place] > 1.050 H 1.001-1.035 Urine Protein Trace H Negative Urine Ketones Negative Negative Urine Blood Negative Negative /uL Urine Nitrite Negative Negative Urine Bilirubin Negative Negative Urine Urobilinogen Normal Negative mg/dL Urine Leukocyte Esterase Negative Negative /uL Urine RBC 1 0 - 4 /hpf Urine WBC 5 0 - 5 /hpf Urine Squamous Epithelial Cells Few <5 /hpf Urine Bacteria None seen None Seen /hpf Urine Glucose Normal Normal mg/dL Assessment Impression: Acute hypoxic respiratory failure Bilateral pulmonary embolism Multiple sclerosis Obesity, BMI 30.8 Plan: Supplemental oxygen, 10 LPM Oxymizer Titrate to keep O2 sats above 92%. Taper O2 as tolerated. Consult Cardiology or IR for thrombectomy. Continue Eliquis Monitor renal function. Monitor electrolytes. Supplement as necessary. Monitor ins and outs. Diet and lifestyle modifications for weight reduction given obesity. Obesity complicates all care. DVT prophylaxis. Prognosis: Poor given patient's multiple co-morbidities. Condition: Critical Rest of plan per hospitalist and other consultants. A total of 35 minutes of critical care time was spent reviewing the patient record, examining the patient, making a diagnostic and therapeutic plan, discussing this plan with the medical personnel, following up on diagnostic studies and following the patient for clinical stability excluding any and all procedures. At least 50% of this time was spent in direct, [id number] contact. Thank you Dr Lock for allowing me to participate in this patient's care. Further recommendations will depend on the patient's clinical course. Please do not hesitate to contact me if you have any questions or concerns. This medical document was created using an electronic medical record system with [employer] dictation system. Although these documentations are being carefully reviewed, there may still be some phonetic and typographical changes. The errors are purely typographical, due to imperfection on the software program, and do not reflect any compromise in the patient's medical care. Plan discussed with: Patient, Other (RN, MD Lock) ANALI WEBB MD Mar 14, 2024 20:00
--- NOTE | 2024-03-14 21:43 | DVHOP2 ---
Operative Report - 2 Report Details Date: 03/14/24 Preop Diagnosis: Pulmonary embolization Postop Diagnosis: Successful bilateral pulmonary thrombectomy Surgeon: Monica Blank MD Anesthesiologist: Conscious sedation Anesthesia: Mac, Local Consent: The patient was informed of the risks and benefits of the procedure. These include but are not limited to complications of anesthesia, postoperative infection, incomplete relief of symptoms, recurrence of symptoms, damage to blood vessels, nerves and tendons, deep venous thrombosis, pulmonary embolism and possible need for repeat surgery in the future. Complications: No complications Estimated Blood Loss: 100 cc Findings: significant thrombus from bilateral pulmonary arteries extracted Indications for Surgery: Pulmonary embolism Name of Procedure Performed Pulmonary thrombectomy Procedure Details Procedure Details: Procedure: Prior full informed consent obtained the patient was prepped and draped in usual fashion. With ultrasound and fluoroscopic guidance we were able to access the femoral vein and place in Inari Intri 24 introducer sheath subsequent to which we placed a pigtail catheter into the pulmonary artery and directed the catheter into the right and left pulmonary arteries and obtained angiographic evaluations As well as pressures. Pulmonary artery pressure was approximately 50/30 mmHg. We then positioned a Amplatz wire in the right pulmonary artery and placed a Triever 24 followed by a curved Triever 20. We performed several extractions of thrombus within the lower mid and upper branches of the right pulmonary artery and repositioned our catheter into the left pulmonary artery and performed several extractions as well. The blood was filtered and reinserted /reintroduced into the large bore femoral venous catheter. Intermittent angiographic evaluations with digital imaging was performed in both pulmonary arteries to delineate thrombus and verify patency of the pulmonary arteries. Approximately 150 cc of contrast was used throughout the procedure. A flow Saver device was also used. After obtaining adequate results we pulled the sheath and placed a Z cross stitch over the femoral vein and used a manual clip to hold the vein closed. patient remained hemodynamically stable. There were no complications. Specimen: Significant amount of thrombus retrieved from both right and left pulmonary arteries Condition Good Disposition Still a Patient Date of Service: Mar 14, 2024 Billing Provider: MONICA BLANK Sr., MD Cardiology Common Codes: 15130-[id number] INP/OBS CARE (High), PROCEDURE ONLY Cardiology Secondary Visit Cod: [id number] CARE PLAN 30 MINUTES, 20796- ADVANCED CARE PLAN ADDL 30MIN Cardiology Procedure Codes: 17246-PCFT ANGIOGRAPGHY ADD-ON ( Pulmonary thrombectomy bilaterally with measurements of pulmonary pressures.) MONICA BLANK Sr., MD Mar 14, 2024 21:43
[2024-03-14] MEDS: APIXABAN 5 MG TAB PO SCH (22:15)
[2024-03-14] MEDS: SODIUM CHLOR 0.9% PF (SALINE LOCK) 10ML VIAL/SYR IV SCH (22:15)
[2024-03-15] VITALS (43 sets, daily range): BP systolic 88–125; BP diastolic 35–65; PULSE 77–114; RESP 14–33; TEMP 98.6–98.9; O2SAT 91–99
[2024-03-15 04:20] LABS: Basophils # (auto) 0 10 ^3/uL (0-0.2); Basophils % (auto) 0.2 % (0.0-2.0); Eosinophils # (auto) 0.1 10 ^3/uL (0-0.8); Eosinophils % (auto) 0.9 % (0.0-7.0); Hematocrit 34.8 % (36.0-46.0); Hemoglobin 11.9 g/dL (12.2-16.2); Lymphocytes % (auto) 10.1 % (10.0-50.0); Mean Corpuscular Hemoglobin 29.9 pg (28.0-32.0); Mean Corpuscular Hgb Conc. 34.1 g/dL (32.0-36.0); Mean Corpuscular Volume 87.7 fL (80.0-100.0); Monocytes # (auto) 0.9 10 ^3/uL (0-1.3); Monocytes % (auto) 9.1 % (0.0-12.0); Neutrophils % (auto) 79.7 % (37.0-80.0); Nucleated Red Blood Cells % 0.1 %; Platelet Count (auto) 312 10^3/uL (140-450); Red Blood Cells 3.97 10^6/uL (4.0-5.20); Red Cell Distribution Width 13.1 % (11.8-14.3)
[2024-03-15 04:28] LABS: Calcium 8.7 mg/dL (8.7-10.4); Chloride 106 mmol/L (98-107); Potassium 3.6 mmol/L (3.5-5.1); Sodium 140 mmol/L (136-145)
[2024-03-15 04:29] LABS: Anion Gap 8 (5-15); Carbon Dioxide 26 mmol/L (20-31)
[2024-03-15 04:34] LABS: BUN/Creatinine Ratio 14.5 (10.0-20.0); Blood Urea Nitrogen 8 mg/dL (9-23); Glucose 99 mg/dL (74-106)
--- NOTE | 2024-03-15 07:07 | ECG ---
[facility] Test Date: 2024-03-14 Test Time: 17:31:31 Pat Name: KO WAGONER Department: er Room: 0206T Gender: F [employer] Burner: angi : 1970 Requested By: HARLEEN STANLEY Order Number: [id number] Reading MD: Robert Blank Measurements Intervals [place] Rate: 100 P: 59 AK: 145 QRS: 48 QRSD: 94 T: 258 QT: 376 QTc: 485 Interpretive Statements Sinus tachycardia Probable left atrial enlargement Low voltage, precordial leads Abnormal T, consider ischemia, diffuse leads Electronically Signed On 03-18-2024 8:18:16 PST by Robert Blank Please click the below link to view image of tracing.
[2024-03-15] MEDS: ACETAMINOPHEN 325 MG TAB PO PRN (10:00)
[2024-03-15] MEDS: FUROSEMIDE 40 MG/4 ML VIAL IV SCH (10:00)
--- NOTE | 2024-03-15 11:58 | DVHPN2 ---
Subjective Seen and examined at bedside, patient is on 5L oxygen. Will titrate down as tolerated. Underwent thrombectomy yesterday. Downgrade to Tele. Changes from previous H/P or p: No Changes Eyes: No Pain, No Vision change, No Conjunctivae inflammation, No Eyelid inflammation, No Other, No Redness ENT: No Ear pain, No Ear discharge, No Nose pain, No Nose discharge, No Nose congestion, No Mouth pain, No Mouth swelling, No Throat pain, No Throat swelling, No Other Cardiovascular: No Chest Pain, No Palpitations, No Orthopnea, No Paroxysmal Noc. Dyspnea, No Edema, No Lt Headedness, No Other Respiratory: Shortness of breath Gastrointestinal: No Nausea, No Vomiting, No Abdominal Pain, No Diarrhea, No Constipation, No Melena, No Hematochezia, No Other Genitourinary: No Dysuria, No Frequency, No Incontinence, No Hematuria, No Retention, No Other Musculoskeletal: No other, No neck pain, No shoulder pain, No arm pain, No back pain, No hand pain, No leg pain, No foot pain Skin: No Rash, No Lesions, No Jaundice, No Bruising, No Other Objective Vitals Vital Signs Date Time Temp Pulse Resp B/P (MAP) Pulse Ox O2 Delivery O2 Flow Rate FiO2 03/15/24 11:00 98.6 03/15/24 10:00 110/44 03/15/24 06:15 84 29 95 03/15/24 06:00 Oxymizer 6 N/A Intake/Output Intake and Output 03/15/24 07:00 Intake Total 120 ml Output Total 800 ml Balance -680 ml Intake Oral 120 ml Output Urine Total 800 ml Exam General Appearance: Alert, Oriented X3, Cooperative, moderate distress HEENT: Atraumatic, PERRLA, EOMI Respiratory: BLAE Cardiovascular: Regular rate, Normal S1, Normal S2, No murmurs Abdominal: Normal bowel sounds, Soft Extremities: Right Femoral Hemostasis Psych/Mental Status: Mental status NL Medications Current Medications Medications Dose Ordered Sig/Coby Route Start Time Stop Time Status Last Admin Dose Admin Heparin Sodium/ Dextrose 250 ml @ 15 mls/hr [id number] IV 03/14/24 18:00 Sodium Chloride 10 ml Q8HR IV 03/14/24 22:00 03/15/24 11:37 10 ML Lorazepam 0.5 mg Q6HP PRN PO 03/14/24 19:30 Acetaminophen 650 mg Q6HP PRN PO 03/14/24 19:30 03/15/24 10:00 650 MG Acetaminophen/ Hydrocodone Bitart 1 tab Q4HP PRN PO 03/14/24 19:30 Morphine Sulfate 2 mg Q4HPRN PRN IV 03/14/24 19:30 Nitroglycerin 0.4 mg Q5MINP PRN SL 03/14/24 19:30 Morphine Sulfate 2 mg Q30M PRN IV 03/14/24 19:30 Albuterol 2.5 mg Q6HPRN PRN NEB 03/14/24 19:30 Ipratropium [place] 0.5 mg Q6HPRN PRN NEB 03/14/24 19:30 Furosemide 40 mg DAILY IV 03/15/24 10:00 03/15/24 10:00 40 MG Apixaban 10 mg BID PO 03/14/24 22:00 03/21/24 21:00 03/15/24 10:00 10 MG Apixaban 5 mg BID PO 03/21/24 22:00 09/20/24 21:59 Laboratory Results Laboratory Tests 03/15/24 03:25 Chemistry Test 03/14/24 17:59 03/15/24 03:25 Albumin 3.6 g/dL (3.2-4.8) Calcium Level 8.7 mg/dL (8.7-10.4) 8.7 mg/dL (8.7-10.4) Magnesium Level 2.2 mg/dL (1.6-2.6) Total Protein 5.3 g/dL (5.7-8.2) L Coagulation Test 03/14/24 17:59 Prothrombin Time 12.8 sec (9.3-11.8) H Prothrombin Time INR 1.23 (0.9-1.15) H Activated Partial Thromboplast Time 35.1 SEC (24.5-34.5) H D-Dimer, Quantitative 4.30 mg/L FEU (0.0-0.49) H Cardiac Markers Test 03/14/24 17:59 03/15/24 03:25 B-Type Natriuretic Peptide 436.94 pg/mL (0-100) 179.28 pg/mL (0-100) LFT Test 03/14/24 17:59 Alanine Aminotransferase (ALT) 36 U/L (7-40) Alkaline Phosphatase 54 U/L (46-116) Aspartate Amino Transferase (AST) 40 U/L (13-40) Total Bilirubin 0.7 mg/dL (0.2-1.0) HgA1c, TSH Test 03/15/24 03:25 Thyroid Stimulating Hormone (TSH) 2.59 uIU/mL (0.55-4.78) Urinalysis Test 03/14/24 17:32 Urine Color Light-yellow (Yellow) Urine Clarity Clear (Clear) Urine pH 6.5 (5.0-9.0) Urine Specific [place] > 1.050 (1.001-1.035) Urine Protein Trace (Negative) H Urine Ketones Negative (Negative) Urine Blood Negative /uL (Negative) Urine Nitrite Negative (Negative) Urine Bilirubin Negative (Negative) Urine Urobilinogen Normal mg/dL (Negative) Urine Leukocyte Esterase Negative /uL (Negative) Urine RBC 1 /hpf (0 - 4) Urine WBC 5 /hpf (0 - 5) Urine Squamous Epithelial Cells Few /hpf (<5) Urine Bacteria None seen /hpf (None Seen) Urine Glucose Normal mg/dL (Normal) Blood Gas Results Test 03/14/24 18:09 Arterial Blood pH 7.525 (7.350-7.450) FiO2 % 21.0 Assessment/Plan Assessment/Plan # Acute Hypoxic Resp Failure - Titrate Oxygen as tolerated - On 5L oxygen # Bilateral Pulm Embolism - For Mechanical Thrombectomy # M.S - Cont outpatient treatment # Goals of care discussion >18 mins FULL CODE critical care time 42 mins Plan discussed with: Patient My Orders Orders - MO RICCI MD Procedure Category Date Status Time Admit ADMIT 03/14/24 Transmitted 19:19 Code Status CODE 03/14/24 Transmitted 19:19 Vital Signs [facility] 03/14/24 In Process 19:19 Review Orders With KIRSTEN 03/14/24 In Process Adm. 19:19 Regular Diet DIET 03/15/24 Transmitted Breakfast Sodium Chloride Lock [facility] 03/14/24 In Process (Saline Lock Ns) 22:00 Lorazepam Tablet [facility] 03/14/24 In Process (Ativan Tablet) 19:30 Acetaminophen Tablet [facility] 03/14/24 In Process (Tylenol Tablet) 19:30 Notify Of Changes [facility] 03/14/24 In Process From Base 19:19 Advance Directive [facility] 03/14/24 In Process 19:19 Patient Condition ORDERS 03/14/24 Transmitted 19:19 Allergies KIRSTEN 03/14/24 In Process 19:19 Hydrocodone-Acet PHA 03/14/24 In Process 5/325mg Tab ([place] 19:30 Morphine Sulfate PHA 03/14/24 In Process Injection 19:30 Nitroglycerin PHA 03/14/24 In Process Sublingual (Ntrostat 19:30 Morphine Sulfate PHA 03/14/24 In Process Injection 19:30 Stat Ekg For Chest KIRSTEN 03/14/24 In Process Pain 19:19 Notify Md Of Changes KIRSTEN 03/14/24 In Process From Base 19:19 Head Nurse For KIRSTEN 03/14/24 In Process 24 Hours 19:19 Emergency Dysrhythmia KIRSTEN 03/14/24 In Process Protocol 19:19 Rhythm Strips Once KIRSTEN 03/14/24 In Process Every Shift 19:19 Oxygen By Nasal RT 03/14/24 Transmitted Cannula 19:19 Albuterol Medneb PHA 03/14/24 In Process (Ventolin Medneb) 19:30 Ipratropium Medneb PHA 03/14/24 In Process (Atrovent Medneb) 19:30 Furosemide Injection PHA 03/15/24 In Process (Lasix Injection) 10:00 Mrsa Screen RAMIREZ 03/14/24 In Process 21:25 Echo 2d Mode Cardiac US 03/15/24 Logged DOP 19:19 Basic Metabolic Panel LAB 03/16/24 Verified 04:00 B-Type Natriuretic LAB 03/16/24 Verified Peptide 04:00 Complete Blood Count LAB 03/16/24 Verified 04:00 Incentive Spirometry ORDERS 03/15/24 Verified Q 1hr 11:55 Date of Service: Mar 15, 2024 Billing Provider: MO RICCI MD Common Visit Codes: [id number] CARE 30-74 MIN MO RICCI MD Mar 15, 2024 11:58
--- NOTE | 2024-03-15 19:45 | DVHPN2 ---
Progress Note - Dictate Date Seen: Mar 15, 2024 Medical Necessity Reason Pt with a Central, PICC or Fol: No Subjective Patient seen and examined at bedside. Remains on supplemental oxygen Overnight events reviewed. vital signs Vital Sign Date Time Temp Pulse Resp B/P (MAP) Pulse Ox O2 Delivery O2 Flow Rate FiO2 03/15/24 16:30 98.9 96 18 121/57 (78) 98 98.9 03/15/24 16:12 Oxymizer 4 N/A Total Intake and Output 03/14/24 03/14/24 03/15/24 15:00 23:00 07:00 Intake Total 120 ml Output Total 800 ml Balance -680 ml medications Current Medications Medications Dose Ordered Sig/Coby Route Start Time Stop Time Status Last Admin Dose Admin Sodium Chloride 10 ml Q8HR IV 03/14/24 22:00 03/15/24 11:37 10 ML Lorazepam 0.5 mg Q6HP PRN PO 03/14/24 19:30 Acetaminophen 650 mg Q6HP PRN PO 03/14/24 19:30 03/15/24 10:00 650 MG Acetaminophen/ Hydrocodone Bitart 1 tab Q4HP PRN PO 03/14/24 19:30 Morphine Sulfate 2 mg Q4HPRN PRN IV 03/14/24 19:30 Nitroglycerin 0.4 mg Q5MINP PRN SL 03/14/24 19:30 Morphine Sulfate 2 mg Q30M PRN IV 03/14/24 19:30 Albuterol 2.5 mg Q6HPRN PRN NEB 03/14/24 19:30 Ipratropium [place] 0.5 mg Q6HPRN PRN NEB 03/14/24 19:30 Furosemide 40 mg DAILY IV 03/15/24 10:00 03/15/24 10:00 40 MG Apixaban 10 mg BID PO 03/14/24 22:00 03/21/24 21:00 03/15/24 10:00 10 MG Apixaban 5 mg BID PO 03/21/24 22:00 09/20/24 21:59 objective Gen.: Patient lying in bed in no apparent distress. On supplemental oxygen. Head: Normocephalic, atraumatic. Eyes: EOMI/PERRLA. Ears: Normal hearing. Normal anatomy. Neck/trachea: Trachea midline, supple. Nose: Normal external anatomy. Mouth: Moist mucous membranes. Chest: Decreased air entry bilaterally. No wheezing or rhonchi. Cardiovascular: Positive S1, positive S2. Regular rate and rhythm. Abdomen: Positive bowel sounds in all 4 quadrants. Soft, non-tender, non- distended. : Deferred. Rectal: Deferred. Skin: Warm, dry. Intact. Extremities: 2+ radial pulses bilaterally. No lower extremity edema. Neuro: Awake, alert, oriented x3. No gross motor or sensory deficits. Cranial nerves II through XII intact. Gait not assessed. laboratory and microbiology Laboratory Tests 03/15/24 03:25 Test 03/15/24 03:25 Range/Units Serum Glucose 99 74-106 mg/dL Assessment/Plan Impression: Acute hypoxic respiratory failure Bilateral pulmonary embolism Multiple sclerosis Events: Remains on supplemental oxygen, 4 LPM NC Taper O2 as tolerated Improved oxygen requirements S/p thrombectomy Continue Eliquis. S/p sheath removal. Continue Lasix for diuresis Monitor renal function. Monitor electrolytes. Supplement as necessary. Monitor ins and outs. Labs and imaging reviewed. Rest of plan as noted below. Plan: Supplemental oxygen Titrate to keep O2 sats above 92%. Continue Eliquis Monitor renal function. Monitor electrolytes. Supplement as necessary. Monitor ins and outs. DVT prophylaxis. Prognosis: Poor given patient's multiple co-morbidities. Condition: Critical Rest of plan per hospitalist and other consultants. A total of 35 minutes of critical care time was spent reviewing the patient record, examining the patient, making a diagnostic and therapeutic plan, discussing this plan with the medical personnel, following up on diagnostic studies and following the patient for clinical stability excluding any and all procedures. At least 50% of this time was spent in direct, [id number] contact. Thank you Dr. Peter Lock MD, for allowing me to participate in this patient's care. Further recommendations will depend on the patient's clinical course. Please do not hesitate to contact me if you have any questions or concerns. This medical document was created using an electronic medical record system with [employer] system. Although these documentations are being carefully reviewed, there may still be some phonetic and typographical changes. The errors are purely typographical, due to imperfection on the software program, and do not reflect any compromise in the patient's medical care. Plan discussed with: Other (RN) Critical Care Time(min): 35 ANALI WEBB MD Mar 15, 2024 19:45
[2024-03-16] VITALS (13 sets, daily range): BP systolic 84–106; BP diastolic 33–54; PULSE 80–90; RESP 16–19; TEMP 98.4–99.4; O2SAT 94–98
[2024-03-16 05:40] LABS: Basophils # (auto) 0 10 ^3/uL (0-0.2); Basophils % (auto) 0.1 % (0.0-2.0); Eosinophils # (auto) 0.1 10 ^3/uL (0-0.8); Eosinophils % (auto) 0.7 % (0.0-7.0); Hematocrit 31.3 % (36.0-46.0); Hemoglobin 10.8 g/dL (12.2-16.2); Lymphocytes # (auto) 0.8 10 ^3/uL (0.4-5.4); Lymphocytes % (auto) 10.6 % (10.0-50.0); Mean Corpuscular Hemoglobin 29.8 pg (28.0-32.0); Mean Corpuscular Hgb Conc. 34.3 g/dL (32.0-36.0); Mean Corpuscular Volume 86.9 fL (80.0-100.0); Monocytes # (auto) 0.8 10 ^3/uL (0-1.3); Monocytes % (auto) 10.3 % (0.0-12.0); Neutrophils # (auto) 6.1 10 ^3/uL (1.6-8.6); Neutrophils % (auto) 78.3 % (37.0-80.0); Nucleated Red Blood Cells % 0.1 %; Platelet Count (auto) 317 10^3/uL (140-450); Red Blood Cells 3.61 10^6/uL (4.0-5.20); Red Cell Distribution Width 13.1 % (11.8-14.3); White Blood Cell 7.8 10^3/uL (4.4-10.8)
[2024-03-16 05:49] LABS: Anion Gap 8 (5-15); Carbon Dioxide 26 mmol/L (20-31); Chloride 104 mmol/L (98-107); Potassium 3.4 mmol/L (3.5-5.1); Sodium 138 mmol/L (136-145)
[2024-03-16 05:51] LABS: Calcium 8.7 mg/dL (8.7-10.4)
[2024-03-16 05:55] LABS: BUN/Creatinine Ratio 13.2 (10.0-20.0); Blood Urea Nitrogen 7 mg/dL (9-23); Glucose 102 mg/dL (74-106)
--- NOTE | 2024-03-16 15:59 | DVHPN2 ---
Subjective update - 03/16 - patient is stable still on oxygen, hypotensive but asymptomatic. This morning Lasix was held given patient was hypotensive. She feels well she does have some pleuritic pain with deep breaths but otherwise stable. Still on oxygen and needs to be weaned further. We will continue primary provider is plan of Lasix, keep on tele, wean oxygen and monitor. Reviewed: H&P Changes from previous H/P or p: No Changes General: Per HPI Eyes: No Pain, No Vision change, No Conjunctivae inflammation, No Eyelid inflammation, No Other, No Redness ENT: No Ear pain, No Ear discharge, No Nose pain, No Nose discharge, No Nose congestion, No Mouth pain, No Mouth swelling, No Throat pain, No Throat swelling, No Other Cardiovascular: No Chest Pain, No Palpitations, No Orthopnea, No Paroxysmal Noc. Dyspnea, No Edema, No Lt Headedness, No Other Respiratory: Shortness of breath Gastrointestinal: No Nausea, No Vomiting, No Abdominal Pain, No Diarrhea, No Constipation, No Melena, No Hematochezia, No Other Genitourinary: No Dysuria, No Frequency, No Incontinence, No Hematuria, No Retention, No Other Musculoskeletal: No other, No neck pain, No shoulder pain, No arm pain, No back pain, No hand pain, No leg pain, No foot pain Skin: No Rash, No Lesions, No Jaundice, No Bruising, No Other Objective Vitals Vital Signs Date Time Temp Pulse Resp B/P (MAP) Pulse Ox O2 Delivery O2 Flow Rate FiO2 03/16/24 11:47 98.5 81 19 94/39 (57) 95 98.5 03/16/24 10:00 Oxymizer 4 N/A Intake/Output Intake and Output 03/16/24 07:00 Intake Total 1400 ml Balance 1400 ml Intake Oral 1400 ml # Voids 3 # Bowel Movements 2 Exam GEN: Healthy appearing, well-developed, NAD. HEENT: NC/AT; MMM. CV: RRR, no m/r/g. LUNGS: CTAB, no w/r/c. ABD: Soft, NT/ND, NBS, no masses or organomegaly. EXT: skin Warm, well perfused. no rashes. No clubbing, cyanosis, or edema. NEURO: Ambulating with no limitations. No focal deficits. Medications Current Medications Medications Dose Ordered Sig/Coby Route Start Time Stop Time Status Last Admin Dose Admin Sodium Chloride 10 ml Q8HR IV 03/14/24 22:00 03/16/24 08:31 10 ML Lorazepam 0.5 mg Q6HP PRN PO 03/14/24 19:30 Acetaminophen 650 mg Q6HP PRN PO 03/14/24 19:30 03/15/24 10:00 650 MG Acetaminophen/ Hydrocodone Bitart 1 tab Q4HP PRN PO 03/14/24 19:30 Morphine Sulfate 2 mg Q4HPRN PRN IV 03/14/24 19:30 Nitroglycerin 0.4 mg Q5MINP PRN SL 03/14/24 19:30 Morphine Sulfate 2 mg Q30M PRN IV 03/14/24 19:30 Albuterol 2.5 mg Q6HPRN PRN NEB 03/14/24 19:30 Ipratropium [place] 0.5 mg Q6HPRN PRN NEB 03/14/24 19:30 Furosemide 40 mg DAILY IV 03/15/24 10:00 03/15/24 10:00 40 MG Apixaban 10 mg BID PO 03/14/24 22:00 03/21/24 21:00 03/16/24 08:30 10 MG Apixaban 5 mg BID PO 03/21/24 22:00 09/20/24 21:59 Laboratory Results Laboratory Tests 03/16/24 05:09 Chemistry Test 03/16/24 05:09 Calcium Level 8.7 mg/dL (8.7-10.4) Cardiac Markers Test 03/16/24 05:09 B-Type Natriuretic Peptide 96.55 pg/mL (0-100) Urinalysis Test 03/14/24 17:32 Urine Color Light-yellow (Yellow) Urine Clarity Clear (Clear) Urine pH 6.5 (5.0-9.0) Urine Specific [place] > 1.050 (1.001-1.035) Urine Protein Trace (Negative) H Urine Ketones Negative (Negative) Urine Blood Negative /uL (Negative) Urine Nitrite Negative (Negative) Urine Bilirubin Negative (Negative) Urine Urobilinogen Normal mg/dL (Negative) Urine Leukocyte Esterase Negative /uL (Negative) Urine RBC 1 /hpf (0 - 4) Urine WBC 5 /hpf (0 - 5) Urine Squamous Epithelial Cells Few /hpf (<5) Urine Bacteria None seen /hpf (None Seen) Urine Glucose Normal mg/dL (Normal) Microbiology Microbiology Date/Time Source Procedure Growth Status 03/14/24 21:25 Nose MRSA Screen - Final Complete Labs and/or images reviewed: Labs reviewed by me, Image(s) reviewed by me Assessment/Plan Assessment/Plan - 03/16 - patient is stable still on oxygen, hypotensive but asymptomatic. This morning Lasix was held given patient was hypotensive. She feels well she does have some pleuritic pain with deep breaths but otherwise stable. Still on oxygen and needs to be weaned further. Patient does take off oxygen when she goes to the bathroom which may not be safe, nursing staff keep oxygen via take if patient ambulates. We will continue primary provider is plan of Lasix, keep on tele, wean oxygen and monitor. # Acute Hypoxic Resp Failure - Titrate Oxygen as tolerated - On 4L oxygen and weaning # Bilateral Pulm Embolism -s /p Mechanical Thrombectomy - cont eliquis # M.S - Cont outpatient treatment Plan discussed with: Patient Date of Service: Mar 16, 2024 Billing Provider: CAL KEARNEY MD Common Visit Codes: [id number] INP/OBS CARE(HIGH) CAL KEARNEY MD Mar 16, 2024 15:59
[2024-03-16] MEDS: POTASSIUM CHL 20 Meq TABLET PO ONE (16:21)
--- NOTE | 2024-03-16 22:44 | DVHPN2 ---
Progress Note - Dictate Date Seen: Mar 16, 2024 Medical Necessity Reason Pt with a Central, PICC or Fol: No Subjective Patient seen and examined at bedside. Remains on supplemental oxygen Overnight events reviewed. vital signs Vital Sign Date Time Temp Pulse Resp B/P (MAP) Pulse Ox O2 Delivery O2 Flow Rate FiO2 03/16/24 21:00 99.0 88 19 97/33 (54) 94 99.0 03/16/24 18:04 Nasal Cannula 4.0 03/16/24 18:04 36 Total Intake and Output 03/15/24 03/15/24 03/16/24 15:00 23:00 07:00 Intake Total 1400 ml Balance 1400 ml medications Current Medications Medications Dose Ordered Sig/Coby Route Start Time Stop Time Status Last Admin Dose Admin Sodium Chloride 10 ml Q8HR IV 03/14/24 22:00 03/16/24 21:58 10 ML Lorazepam 0.5 mg Q6HP PRN PO 03/14/24 19:30 Acetaminophen 650 mg Q6HP PRN PO 03/14/24 19:30 03/15/24 10:00 650 MG Acetaminophen/ Hydrocodone Bitart 1 tab Q4HP PRN PO 03/14/24 19:30 Morphine Sulfate 2 mg Q4HPRN PRN IV 03/14/24 19:30 Nitroglycerin 0.4 mg Q5MINP PRN SL 03/14/24 19:30 Morphine Sulfate 2 mg Q30M PRN IV 03/14/24 19:30 Albuterol 2.5 mg Q6HPRN PRN NEB 03/14/24 19:30 Ipratropium [place] 0.5 mg Q6HPRN PRN NEB 03/14/24 19:30 Furosemide 40 mg DAILY IV 03/15/24 10:00 03/15/24 10:00 40 MG Apixaban 10 mg BID PO 03/14/24 22:00 03/21/24 21:00 03/16/24 21:40 10 MG Apixaban 5 mg BID PO 03/21/24 22:00 09/20/24 21:59 objective Gen.: Patient lying in bed in no apparent distress. On supplemental oxygen. Head: Normocephalic, atraumatic. Eyes: EOMI/PERRLA. Ears: Normal hearing. Normal anatomy. Neck/trachea: Trachea midline, supple. Nose: Normal external anatomy. Mouth: Moist mucous membranes. Chest: Decreased air entry bilaterally. No wheezing or rhonchi. Cardiovascular: Positive S1, positive S2. Regular rate and rhythm. Abdomen: Positive bowel sounds in all 4 quadrants. Soft, non-tender, non- distended. : Deferred. Rectal: Deferred. Skin: Warm, dry. Intact. Extremities: 2+ radial pulses bilaterally. No lower extremity edema. Neuro: Awake, alert, oriented x3. No gross motor or sensory deficits. Cranial nerves II through XII intact. Gait not assessed. laboratory and microbiology Laboratory Tests 03/16/24 05:09 Test 03/16/24 05:09 Range/Units Serum Glucose 102 74-106 mg/dL Assessment/Plan Impression: Acute hypoxic respiratory failure Bilateral pulmonary embolism Multiple sclerosis Obesity, BMI 30.8 Events: Remains on supplemental oxygen, 4 LPM [place] Taper O2 as tolerated Improving O2 requirements. Continue bronchodilators Incentive spirometry On Eliquis. Maintain euvolemia w/ Lasix. Monitor renal function. Monitor electrolytes. Supplement as necessary. Potassium supplementation Pain control Avoid oversedation Labs and imaging reviewed. Rest of plan as noted below. Plan: Supplemental oxygen Titrate to keep O2 sats above 92%. Patient is s/p thrombectomy. Continue Eliquis Monitor renal function. Monitor electrolytes. Supplement as necessary. Monitor ins and outs. Diet and lifestyle modifications for weight reduction given obesity. Obesity complicates all care. DVT prophylaxis. Prognosis: Guarded given patient's multiple co-morbidities. Rest of plan per hospitalist and other consultants. Thank you Dr Lock for allowing me to participate in this patient's care. Further recommendations will depend on the patient's clinical course. Please do not hesitate to contact me if you have any questions or concerns. This medical document was created using an electronic medical record system with [employer] dictation system. Although these documentations are being carefully reviewed, there may still be some phonetic and typographical changes. The errors are purely typographical, due to imperfection on the software program, and do not reflect any compromise in the patient's medical care. Plan discussed with: Patient, Other (SHERRIE Williamson) ANALI WEBB MD Mar 16, 2024 22:44
[2024-03-17] VITALS (10 sets, daily range): BP systolic 94–111; BP diastolic 32–62; PULSE 77–96; RESP 16–20; TEMP 98.1–100.6; O2SAT 92–96
[2024-03-17 06:18] LABS: Calcium 8.4 mg/dL (8.7-10.4); Chloride 106 mmol/L (98-107); Potassium 4.2 mmol/L (3.5-5.1); Sodium 139 mmol/L (136-145)
[2024-03-17 06:19] LABS: Anion Gap 9 (5-15); Carbon Dioxide 24 mmol/L (20-31)
[2024-03-17 06:24] LABS: Blood Urea Nitrogen 8 mg/dL (9-23); Glucose 92 mg/dL (74-106)
[2024-03-17 06:25] LABS: Magnesium 2.3 mg/dL (1.6-2.6)
[2024-03-17 11:11] LABS: Basophils # (auto) 0 10 ^3/uL (0-0.2); Basophils % (auto) 0.4 % (0.0-2.0); Eosinophils # (auto) 0.1 10 ^3/uL (0-0.8); Eosinophils % (auto) 1.4 % (0.0-7.0); Hematocrit 31.5 % (36.0-46.0); Hemoglobin 10.7 g/dL (12.2-16.2); Lymphocytes # (auto) 0.8 10 ^3/uL (0.4-5.4); Lymphocytes % (auto) 9.4 % (10.0-50.0); Mean Corpuscular Hemoglobin 29.6 pg (28.0-32.0); Mean Corpuscular Hgb Conc. 33.9 g/dL (32.0-36.0); Mean Corpuscular Volume 87.5 fL (80.0-100.0); Monocytes # (auto) 0.7 10 ^3/uL (0-1.3); Monocytes % (auto) 8.3 % (0.0-12.0); Neutrophils # (auto) 7.3 10 ^3/uL (1.6-8.6); Neutrophils % (auto) 80.5 % (37.0-80.0); Platelet Count (auto) 368 10^3/uL (140-450); Red Cell Distribution Width 13.1 % (11.8-14.3)
--- NOTE | 2024-03-17 14:11 | DVH ---
XY CHEST TWO VIEWS ROUTINE, HISTORY: Followup COMPARISON: None None TECHNICAL DATA: 2 view of the chest was obtained. FINDINGS: Lines and tubes: None Cardiomediastinal silhouette: normal Pulmonary vasculature: normal Lung expansion: normal Lung airspace: normal Lung interstitium: normal Pleura: normal Pneumothorax: no Bones: Unremarkable Other: no IMPRESSION: No acute intrathoracic abnormality.
--- NOTE | 2024-03-17 15:20 | DVHPN2 ---
Subjective Seen and examined at bedside, patient is on 2L oxygen. Will titrate down as tolerated. Feeling better, possible DC in 24-48 hours. Reviewed: H&P Changes from previous H/P or p: No Changes General: Per HPI Eyes: No Pain, No Vision change, No Conjunctivae inflammation, No Eyelid inflammation, No Other, No Redness ENT: No Ear pain, No Ear discharge, No Nose pain, No Nose discharge, No Nose congestion, No Mouth pain, No Mouth swelling, No Throat pain, No Throat swelling, No Other Cardiovascular: No Chest Pain, No Palpitations, No Orthopnea, No Paroxysmal Noc. Dyspnea, No Edema, No Lt Headedness, No Other Respiratory: No Cough, No Dry, No Shortness of breath, No SOB with excertion, No Wheezing, No Hemoptysis, No Pleuritic Pain, No Sputum, No Other Gastrointestinal: No Nausea, No Vomiting, No Abdominal Pain, No Diarrhea, No Constipation, No Melena, No Hematochezia, No Other Genitourinary: No Dysuria, No Frequency, No Incontinence, No Hematuria, No Retention, No Other Musculoskeletal: No other, No neck pain, No shoulder pain, No arm pain, No back pain, No hand pain, No leg pain, No foot pain Skin: No Rash, No Lesions, No Jaundice, No Bruising, No Other Objective Vitals Vital Signs Date Time Temp Pulse Resp B/P (MAP) Pulse Ox O2 Delivery O2 Flow Rate FiO2 03/17/24 11:41 98.1 89 16 98/62 (74) 92 98.1 03/17/24 10:00 Nasal Cannula 2.0 03/17/24 10:00 28 Intake/Output Intake and Output 03/17/24 07:00 Intake Total 3100 ml Output Total 600 ml Balance 2500 ml Intake Oral 3100 ml Output Urine Total 600 ml # Voids 5 # Bowel Movements 1 Exam General Appearance: Alert, Oriented X3, Cooperative, moderate distress HEENT: Atraumatic, PERRLA, EOMI Respiratory: BLAE Cardiovascular: Regular rate, Normal S1, Normal S2, No murmurs Abdominal: Normal bowel sounds, Soft Extremities: Right Femoral Hemostasis Psych/Mental Status: Mental status NL Medications Current Medications Medications Dose Ordered Sig/Coby Route Start Time Stop Time Status Last Admin Dose Admin Sodium Chloride 10 ml Q8HR IV 03/14/24 22:00 03/17/24 09:21 10 ML Lorazepam 0.5 mg Q6HP PRN PO 03/14/24 19:30 Acetaminophen 650 mg Q6HP PRN PO 03/14/24 19:30 03/15/24 10:00 650 MG Acetaminophen/ Hydrocodone Bitart 1 tab Q4HP PRN PO 03/14/24 19:30 Morphine Sulfate 2 mg Q4HPRN PRN IV 03/14/24 19:30 Nitroglycerin 0.4 mg Q5MINP PRN SL 03/14/24 19:30 Morphine Sulfate 2 mg Q30M PRN IV 03/14/24 19:30 Furosemide 40 mg DAILY IV 03/15/24 10:00 03/15/24 10:00 40 MG Apixaban 10 mg BID PO 03/14/24 22:00 03/21/24 21:00 03/17/24 09:20 10 MG Apixaban 5 mg BID PO 03/21/24 22:00 09/20/24 21:59 Laboratory Results Laboratory Tests 03/17/24 04:42 03/17/24 11:00 Chemistry Test 03/17/24 04:42 Calcium Level 8.4 mg/dL (8.7-10.4) L Magnesium Level 2.3 mg/dL (1.6-2.6) Cardiac Markers Test 03/17/24 11:00 B-Type Natriuretic Peptide 49.69 pg/mL (0-100) Urinalysis Test 03/14/24 17:32 Urine Color Light-yellow (Yellow) Urine Clarity Clear (Clear) Urine pH 6.5 (5.0-9.0) Urine Specific [place] > 1.050 (1.001-1.035) Urine Protein Trace (Negative) H Urine Ketones Negative (Negative) Urine Blood Negative /uL (Negative) Urine Nitrite Negative (Negative) Urine Bilirubin Negative (Negative) Urine Urobilinogen Normal mg/dL (Negative) Urine Leukocyte Esterase Negative /uL (Negative) Urine RBC 1 /hpf (0 - 4) Urine WBC 5 /hpf (0 - 5) Urine Squamous Epithelial Cells Few /hpf (<5) Urine Bacteria None seen /hpf (None Seen) Urine Glucose Normal mg/dL (Normal) Microbiology Microbiology Date/Time Source Procedure Growth Status 03/14/24 21:25 Nose MRSA Screen - Final Complete Assessment/Plan Assessment/Plan # Acute Hypoxic Resp Failure - Titrate Oxygen as tolerated - On 2L oxygen # Bilateral Pulm Embolism - For Mechanical Thrombectomy # M.S - Cont outpatient treatment # Goals of care discussion >18 mins FULL CODE Plan discussed with: Patient My Orders Orders - MO RICCI MD Procedure Category Date Status Time Chest Two Views XY 03/17/24 Resulted Routine 11:02 Date of Service: Mar 17, 2024 Billing Provider: MO RICCI MD Common Visit Codes: [id number] INP/OBS CARE(MOD) MO RICCI MD Mar 17, 2024 15:20
--- NOTE | 2024-03-17 21:03 | DVHPN2 ---
Progress Note - Dictate Date Seen: Mar 17, 2024 Medical Necessity Reason Pt with a Central, PICC or Fol: No Subjective Patient seen and examined at bedside. Remains on supplemental oxygen Overnight events reviewed. vital signs Vital Sign Date Time Temp Pulse Resp B/P (MAP) Pulse Ox O2 Delivery O2 Flow Rate FiO2 03/17/24 16:00 100.0 87 17 94/32 (52) 92 100.0 03/17/24 10:00 Nasal Cannula 2.0 03/17/24 10:00 28 Total Intake and Output 03/16/24 03/16/24 03/17/24 15:00 23:00 07:00 Intake Total 2300 ml 800 ml Output Total 600 ml Balance 1700 ml 800 ml medications Current Medications Medications Dose Ordered Sig/Coby Route Start Time Stop Time Status Last Admin Dose Admin Sodium Chloride 10 ml Q8HR IV 03/14/24 22:00 03/17/24 09:21 10 ML Lorazepam 0.5 mg Q6HP PRN PO 03/14/24 19:30 Acetaminophen 650 mg Q6HP PRN PO 03/14/24 19:30 03/15/24 10:00 650 MG Acetaminophen/ Hydrocodone Bitart 1 tab Q4HP PRN PO 03/14/24 19:30 Morphine Sulfate 2 mg Q4HPRN PRN IV 03/14/24 19:30 Nitroglycerin 0.4 mg Q5MINP PRN SL 03/14/24 19:30 Morphine Sulfate 2 mg Q30M PRN IV 03/14/24 19:30 Furosemide 40 mg DAILY IV 03/15/24 10:00 03/15/24 10:00 40 MG Apixaban 10 mg BID PO 03/14/24 22:00 03/21/24 21:00 03/17/24 09:20 10 MG Apixaban 5 mg BID PO 03/21/24 22:00 09/20/24 21:59 objective Gen.: Patient lying in bed in no apparent distress. On supplemental oxygen. Head: Normocephalic, atraumatic. Eyes: EOMI/PERRLA. Ears: Normal hearing. Normal anatomy. Neck/trachea: Trachea midline, supple. Nose: Normal external anatomy. Mouth: Moist mucous membranes. Chest: Decreased air entry bilaterally. No wheezing or rhonchi. Cardiovascular: Positive S1, positive S2. Regular rate and rhythm. Abdomen: Positive bowel sounds in all 4 quadrants. Soft, non-tender, non- distended. : Deferred. Rectal: Deferred. Skin: Warm, dry. Intact. Extremities: 2+ radial pulses bilaterally. No lower extremity edema. Neuro: Awake, alert, oriented x3. No gross motor or sensory deficits. Cranial nerves II through XII intact. Gait not assessed. laboratory and microbiology Laboratory Tests 03/17/24 11:00 03/17/24 04:42 Test 03/17/24 04:42 Range/Units Serum Glucose 92 74-106 mg/dL Assessment/Plan Impression: Acute hypoxic respiratory failure Bilateral pulmonary embolism Multiple sclerosis Obesity, BMI 30.8 Events: Remains on supplemental oxygen, 2 LPM NC Taper O2 as tolerated Improved O2 requirements. Patient is stable for discharge from the pulmonary standpoint. Assess and arrange for home O2 if necessary. Incentive spirometry Continue Eliquis. D/w SHERRIE Vazquez and Dr. Lock. Labs and imaging reviewed. Rest of plan as noted below. Plan: Supplemental oxygen Titrate to keep O2 sats above 92%. Patient is s/p thrombectomy. Continue Eliquis Monitor renal function. Monitor electrolytes. Supplement as necessary. Monitor ins and outs. Diet and lifestyle modifications for weight reduction given obesity. Obesity complicates all care. DVT prophylaxis. Prognosis: Guarded given patient's multiple co-morbidities. Rest of plan per hospitalist and other consultants. Thank you Dr Lock for allowing me to participate in this patient's care. Further recommendations will depend on the patient's clinical course. Please do not hesitate to contact me if you have any questions or concerns. This medical document was created using an electronic medical record system with [employer] dictation system. Although these documentations are being carefully reviewed, there may still be some phonetic and typographical changes. The errors are purely typographical, due to imperfection on the software program, and do not reflect any compromise in the patient's medical care. Plan discussed with: Patient, Other (SHERRIE Vazquez/MD Lock) ANALI WEBB MD Mar 17, 2024 21:03
[2024-03-18] VITALS (8 sets, daily range): BP systolic 93–105; BP diastolic 42–54; PULSE 68–99; RESP 14–20; TEMP 97.5–98.7; O2SAT 92–98
--- NOTE | 2024-03-18 08:37 | DVHSR ---
APPROVED REPORT EXAM: LIMITED Two-dimensional and M-mode echocardiogram with Doppler and color Doppler. Blood Pressure: 112/54 mmHg INDICATION PE RISK FACTORS Height: 5' 6", Weight: 190 DIMENSIONS LVDd4.9 (3.8-5.7cm)LA (2D)4.0 (1.9-4.0cm)Aortic Root3.5 (2.0-3.7cm) LVDs3.3 (2.5-4.0cm)LA (MM) (1.9-4.0cm)Aortic Cusp Exc2.1 (1.5-2.0cm) EF (%) 60.0 (55-70%)Rt. Atrium4.5 (1.9-4.0cm)Asc. Aorta cm Mitral Valve MitralMitral Stenosis E wave1.10m/sMV Mean GR.mmHg A wave1.10m/sMV Peak GR.mmHg E/A ratio1.02D MVAcm2 Aortic Valve Aortic ValveAortic Stenosis V11.10m/Vy Mean GR.10mmHg V22.00m/Vy Peak GR.17mmHg LVOT Diameter2.3 (1.8-2.4cm)Doppler AVA2.28cm2 Tricuspid Valve TR Velocity2.80m/s [id number] Conclusion Technically difficult study. Difficult acoustic windows. Concentric LVH. Biatrial enlargement. Valves appear to be structurally normal. EF of 60% with normal RV function. TAPSE score not delineated. Mild TR. No pericardial effusion masses or vegetations.
[2024-03-18] MEDS ORDERED: APIX5TAB PO (14:36)
[2024-03-18] MEDS ORDERED: FURO1TAB33 PO (14:36)
--- NOTE | 2024-03-18 14:41 | DVHDS2 ---
Discharge Summary Date of Admission Mar 14, 2024 at 19:19 Date of Discharge: Mar 18, 2024 Admitting Diagnosis Pulmonary embolization Labs/Diagnostic Data: Laboratory Results Test 03/17/24 11:00 03/17/24 04:42 03/15/24 03:25 03/15/24 00:18 White Blood Count 9.0 10^3/uL (4.4-10.8) Red Blood Count 3.60 10^6/uL (4.0-5.20) Hemoglobin 10.7 g/dL (12.2-16.2) Hematocrit 31.5 % (36.0-46.0) Mean Corpuscular Volume 87.5 fL (80.0-100.0) Mean Corpuscular Hemoglobin 29.6 pg (28.0-32.0) Mean Corpuscular Hemoglobin Concent 33.9 g/dL (32.0-36.0) Red Cell Distribution Width 13.1 % (11.8-14.3) Platelet Count 368 10^3/uL (140-450) Mean Platelet Volume 7.5 fL (6.9-10.8) Neutrophils (%) (Auto) 80.5 % (37.0-80.0) Lymphocytes (%) (Auto) 9.4 % (10.0-50.0) Monocytes (%) (Auto) 8.3 % (0.0-12.0) Eosinophils (%) (Auto) 1.4 % (0.0-7.0) Basophils (%) (Auto) 0.4 % (0.0-2.0) Neutrophils # (Auto) 7.3 10 ^3/uL (1.6-8.6) Lymphocytes # (Auto) 0.8 10 ^3/uL (0.4-5.4) Monocytes # (Auto) 0.7 10 ^3/uL (0-1.3) Eosinophils # (Auto) 0.1 10 ^3/uL (0-0.8) Basophils # (Auto) 0 10 ^3/uL (0-0.2) Nucleated Red Blood Cells 0.0 % B-Type Natriuretic Peptide 49.69 pg/mL (0-100) Sodium Level 139 mmol/L (136-145) Potassium Level 4.2 mmol/L (3.5-5.1) Chloride Level 106 mmol/L (98-107) Carbon Dioxide Level 24 mmol/L (20-31) Anion Gap 9 (5-15) Blood Urea Nitrogen 8 mg/dL (9-23) Creatinine 0.42 mg/dL (0.550-1.02) Glomerular Filtration Rate Calc 116 mL/min (>90) BUN/Creatinine Ratio 19.0 (10.0-20.0) Serum Glucose 92 mg/dL (74-106) Calcium Level 8.4 mg/dL (8.7-10.4) Magnesium Level 2.3 mg/dL (1.6-2.6) Thyroid Stimulating Hormone (TSH) 2.59 uIU/mL (0.55-4.78) Troponin I High Sensitivity 172 ng/L (</=34) Test 03/14/24 18:09 03/14/24 17:59 03/14/24 17:32 Blood Gas Specimen Type Arterial Blood Gas Sample Site Right radial Blood Gas Patient Temperature 37.0 Arterial Blood Date Drawn [id number] Arterial Blood pH 7.525 (7.350-7.450) Arterial Blood Partial Pressure CO2 26.5 mmHg (32.0-45.0) Arterial Blood Partial Pressure O2 43.3 mmHg (83.0-108.0) Arterial Blood HCO3 21.4 mmol/L (21.0-28.0) Arterial Blood Oxygen Saturation 82.7 % (94.0-98.0) Arterial Blood Base Excess -0.1 mmol/L (-2.0-3.0) Arterial Blood Oxyhemoglobin 81.9 % (94.0-98.0) Arterial Blood Carboxyhemoglobin 0.5 % (0.5-1.5) Arterial Blood Methemoglobin 0.5 % (0.0-1.5) Earl Test Yes Blood Gas Total Hemoglobin 12.80 g/dL (12.0-16.0) Blood Gas Modality Room air FiO2 % 21.0 Blood Gas Critical Value Read Back Yes Blood Gas Notified Whom Dr. mae Blood Gas Notified Time [id number] Blood Gas Notified By Amirah noe Prothrombin Time 12.8 sec (9.3-11.8) Prothrombin Time INR 1.23 (0.9-1.15) Activated Partial Thromboplast Time 35.1 SEC (24.5-34.5) D-Dimer, Quantitative 4.30 mg/L FEU (0.0-0.49) Total Bilirubin 0.7 mg/dL (0.2-1.0) Aspartate Amino Transferase (AST) 40 U/L (13-40) Alanine Aminotransferase (ALT) 36 U/L (7-40) Alkaline Phosphatase 54 U/L (46-116) Total Protein 5.3 g/dL (5.7-8.2) Albumin 3.6 g/dL (3.2-4.8) Urine Color Light-yellow (Yellow) Urine Clarity Clear (Clear) Urine pH 6.5 (5.0-9.0) Urine Specific [place] > 1.050 (1.001-1.035) Urine Protein Trace (Negative) Urine Ketones Negative (Negative) Urine Blood Negative /uL (Negative) Urine Nitrite Negative (Negative) Urine Bilirubin Negative (Negative) Urine Urobilinogen Normal mg/dL (Negative) Urine Leukocyte Esterase Negative /uL (Negative) Urine RBC 1 /hpf (0 - 4) Urine WBC 5 /hpf (0 - 5) Urine Squamous Epithelial Cells Few /hpf (<5) Urine Bacteria None seen /hpf (None Seen) Urine Glucose Normal mg/dL (Normal) Other Laboratory Tests 03/17/24 11:00 03/17/24 04:42 Brief Hx & Hospital Course: 83-year-old female with past medical history of multiple sclerosis presented from urgent care as on the CT angio, she had bilateral extensive pulmonary embolism. Patient has been having shortness of breath, cough, fever, chills for last five days. She also mentioned associated chest pain that she felt whenever she would was taking deep inspiration. Patient went to urgent Care, initial SpO2 was 83% on room air, patient was connected on oxygen, she was later maintaining 93% on 2 L. Patient's labs done at urgent care today revealed WBC count of 11.2, platelet count of 302 sodium 135, potassium 3.4 BNP 637 troponin i-STAT 0.31(normal range 0 to 0.05 per labs at urgent care). Chest x-ray done at urgent care revealed findings most consistent with pneumonia involving the left upper lobe with a large area of alveolar type infiltrates seen peripherally and anteriorly. CT angiography chest done today revealed : There are bilateral extensive pulmonary embolism. Both lungs showed scattered areas of ground-glass interstitial change and consolidation, most severe in the left lung likely representing regions of pulmonary infarction. The main pulmonary artery is prominent consistent with pulmonary arterial hypertension. She mentioned she is not on any blood thinners, did not have any recent surgery, no history of any brain bleed, brain aneurysm, no history of any melena, hematochezia, or bleeding from any other site. On presenting to the ED, patient was being initial vitals, temperature 98.6, pulse rate 91, respiratory rate 26, blood pressure 134/87, and patient was initially on 5 L of oxygen through nasal cannula, was desaturating and later started on Oxymizer, was maintaining 94% on 10 L. Patient was seen in STAT Cardiology consult, was taken emergently to the label remover for Mechanical Thrombectomy. Patient tolerated procedure well see operative report below. Patient is currently on 2 L of oxygen. Patient needs to continue Eliquis at home, patient reports she has home oxygen, encouraged to use Incentive Spirometer at home and titrate oxygen down. Operations or Procedures Operative Report - 2 Report Details Date: 03/14/24 Preop Diagnosis: Pulmonary embolization Postop Diagnosis: Successful bilateral pulmonary thrombectomy Surgeon: Robert Blank MD Anesthesiologist: Conscious sedation Anesthesia: Mac, Local Consent: The patient was informed of the risks and benefits of the procedure. These include but are not limited to complications of anesthesia, postoperative infection, incomplete relief of symptoms, recurrence of symptoms, damage to blood vessels, nerves and tendons, deep venous thrombosis, pulmonary embolism and possible need for repeat surgery in the future. Complications: No complications Estimated Blood Loss: 100 cc Findings: significant thrombus from bilateral pulmonary arteries extracted Indications for Surgery: Pulmonary embolism Name of Procedure Performed Pulmonary thrombectomy Procedure Details Procedure Details: Procedure: Prior full informed consent obtained the patient was prepped and draped in usual fashion. With ultrasound and fluoroscopic guidance we were able to access the femoral vein and place in Inari Intri 24 introducer sheath subsequent to which we placed a pigtail catheter into the pulmonary artery and directed the catheter into the right and left pulmonary arteries and obtained angiographic evaluations As well as pressures. Pulmonary artery pressure was approximately 50/30 mmHg. We then positioned a Amplatz wire in the right pulmonary artery and placed a Triever 24 followed by a curved Triever 20. We performed several extractions of thrombus within the lower mid and upper branches of the right pulmonary artery and repositioned our catheter into the left pulmonary artery and performed several extractions as well. The blood was filtered and reinserted /reintroduced into the large bore femoral venous catheter. Intermittent angiographic evaluations with digital imaging was performed in both pulmonary arteries to delineate thrombus and verify patency of the pulmonary arteries. Approximately 150 cc of contrast was used throughout the procedure. A flow Saver device was also used. After obtaining adequate results we pulled the sheath and placed a Z cross stitch over the femoral vein and used a manual clip to hold the vein closed. patient remained hemodynamically stable. There were no complications. Specimen: Significant amount of thrombus retrieved from both right and left pulmonary arteries Condition Good Condition at Discharge: Good Final Diagnosis/Problems List Pulmonary embolization Acute Hypoxic Resp Failure Hypercoagulable state Blindness Multiple Scelorsis Discharge Disposition: Home Discharge Instruct/Medications Diet: Regular Activity: Light activity Follow Up/Referral: PCP in 3-5 days Medications: See [facility] Discharge Statement: "Patient was advised to return to the ER or call 911 if any headaches, dizziness, shortness of breath, chest pain, abdominal pain, bleeding, fevers, or worsening of medical condition. Patient was counseled about treatment plan, medications, possible side effects, patientverbalized understanding. All questions were answered to the best of my ability. This discharge took greater then 30 minutes in planning, reviewing documentation, counseling the patient, and discussing with other team members." ASSESSMENT ASSESSMENT Assessment Successful bilateral pulmonary thrombectomy Date of Service: Mar 18, 2024 Billing Provider: MO RICCI MD Common Visit Codes: 82289-RBG/OBS DISCH DAY >30min MO RICCI MD Mar 18, 2024 14:41
--- NOTE | 2024-03-18 18:42 | DVHPN2 ---
Progress Note - Dictate Date Seen: Mar 18, 2024 Medical Necessity Reason Pt with a Central, PICC or Fol: No Subjective Patient seen and examined at bedside. Remains on supplemental oxygen Overnight events reviewed. vital signs Vital Sign Date Time Temp Pulse Resp B/P (MAP) Pulse Ox O2 Delivery O2 Flow Rate FiO2 03/18/24 16:36 98.5 99 20 103/52 (69) 98 98.5 03/18/24 10:00 Nasal Cannula 2.0 03/18/24 10:00 28 Total Intake and Output 03/17/24 03/17/24 03/18/24 15:00 23:00 07:00 Intake Total 2500 ml 460 ml Output Total 600 ml Balance 1900 ml 460 ml objective Gen.: Patient lying in bed in no apparent distress. On supplemental oxygen. Head: Normocephalic, atraumatic. Eyes: EOMI/PERRLA. Ears: Normal hearing. Normal anatomy. Neck/trachea: Trachea midline, supple. Nose: Normal external anatomy. Mouth: Moist mucous membranes. Chest: Decreased air entry bilaterally. No wheezing or rhonchi. Cardiovascular: Positive S1, positive S2. Regular rate and rhythm. Abdomen: Positive bowel sounds in all 4 quadrants. Soft, non-tender, non- distended. : Deferred. Rectal: Deferred. Skin: Warm, dry. Intact. Extremities: 2+ radial pulses bilaterally. No lower extremity edema. Neuro: Awake, alert, oriented x3. No gross motor or sensory deficits. Cranial nerves II through XII intact. Gait not assessed. laboratory and microbiology Laboratory Tests 03/17/24 11:00 03/17/24 04:42 Test 03/17/24 04:42 Range/Units Serum Glucose 92 74-106 mg/dL Assessment/Plan Impression: Acute hypoxic respiratory failure Bilateral pulmonary embolism Multiple sclerosis Obesity, BMI 30.8 Events: Remains on supplemental oxygen, 2 LPM NC Taper O2 as tolerated Patient is stable for discharge from the pulmonary standpoint. Arranged for home O2. Incentive spirometry Continue Eliquis BID. Labs and imaging reviewed. Rest of plan as noted below. Plan: Supplemental oxygen Titrate to keep O2 sats above 92%. Patient is s/p thrombectomy. Continue Eliquis Monitor renal function. Monitor electrolytes. Supplement as necessary. Monitor ins and outs. Diet and lifestyle modifications for weight reduction given obesity. Obesity complicates all care. DVT prophylaxis. Prognosis: Guarded given patient's multiple co-morbidities. Rest of plan per hospitalist and other consultants. Thank you Dr Lock for allowing me to participate in this patient's care. Further recommendations will depend on the patient's clinical course. Please do not hesitate to contact me if you have any questions or concerns. This medical document was created using an electronic medical record system with [employer] dictation system. Although these documentations are being carefully reviewed, there may still be some phonetic and typographical changes. The errors are purely typographical, due to imperfection on the software program, and do not reflect any compromise in the patient's medical care. Plan discussed with: Patient, Other (RN Sera) ANALI WEBB MD Mar 18, 2024 18:42
[2024-03-21] MEDS ORDERED: APIXABAN 5 MG TAB PO SCH (22:00)
== END 2024-03-18 18:00 | disposition home or self-care (01) | DRG 163 ==
LOC: EDBD 17:04 → EDUNIT# 17:04 → ER 17:10 → TELE 19:19 → ICU WEST 21:19 → TELE-CENTR 03-15 17:24
PROVIDERS: ADMIT Internal Medicine; ATTEND Internal Medicine
PROC: 02CQ3ZZ Extirpation of Matter from Right Pulmonary Artery, Percutaneous Approach (ICD-10-PCS; principal; 2024-03-14)
PROC: 02CR3ZZ Extirpation of Matter from Left Pulmonary Artery, Percutaneous Approach (ICD-10-PCS; 2024-03-14)
DX: I26.99 Other pulmonary embolism without acute cor pulmonale (principal); J18.9 Pneumonia, unspecified organism; J96.01 Acute respiratory failure with hypoxia; D68.59 Other primary thrombophilia; G35 Multiple sclerosis; Z68.30 Body mass index [BMI] 30.0-30.9, adult; E66.9 Obesity, unspecified; I27.21 Secondary pulmonary arterial hypertension; Z80.1 Family history of malignant neoplasm of trachea, bronchus and lung; Z79.01 Long term (current) use of anticoagulants
CPT/HCPCS: 36415; 36600; 71045; 71046; 80048; 80053; 81001; 82805; 83735; 83880; 84443; 84484; 85025; 85379; 85610; 85730; 87081; 93005; 93306; 93970; 97116; 97163; 97530; 99291; G0378; J2250; Q9967

== ENCOUNTER 2024-03-18 23:39 | Emergency (ER) | payer OTHER, BC ==
[~2024-03-18] VITALS: Ht 167.6 cm; Wt 83.6 kg
[~2024-03-18 23:39] MED LIST: APIX5TAB PO; FURO1TAB33 PO
[2024-03-18 23:50] VITALS: BP 118/74; PULSE 103; RESP 18; O2SAT 94
--- NOTE | 2024-03-19 00:43 | ED.PDOC ---
SOB-HPI HPI Comments 53-year-old female states that she has been feeling short of breath at home. Patient states she was discharged today with an oxygen tank. She was admitted for PE, states they did do surgery to remove some of the clots. Home health was scheduled to come out to her house but since she was not discharged he was she could not meet them there. There was scheduled to come out to her house tomorrow morning when she calls them. She states she was talking to her daughter which started feeling short of breath, they called the nurse hotline and they were advised to come into the emergency department to check the oxygen tank. Upon arrival patient's oxygen tank was empty. Chief Complaint: Shortness of Breath Time Seen by MD: 23:56 Primary Care Provider: EMELY Reviewed notes: Nurses Notes Information Source: Patient Mode of Arrival: Ambulatory Past Medical History PAST MEDICAL HISTORY: PE Constitutional: denies: chills, diaphoresis, fatigue, fever, malaise, sweats, weakness, others EENTM: denies: blurred vision, double vision, ear bleeding, ear discharge, ear drainage, ear pain, ear ringing, eye pain, eye redness, hearing loss, mouth pain, mouth swelling, nasal discharge, nose bleeding, nose congestion, nose pain, photophobia, tearing, throat pain, throat swelling, voice changes, others Respiratory: reports: SOB at rest; denies: cough, hemoptysis, orthopnea, shortness of breath, SOB with excertion, stridor, wheezing, others Cardiovascular: denies: chest pain, dizzy spells, diaphoresis, Dyspnea on exertion, edema, irregular heart beat, left arm pain, lightheadedness, pa lpitations, PND, syncope, others Gastrointestinal: denies: abdomen distended, abdominal pain, blood streaked bowels, constipated, diarrhea, dysphagia, difficulty swallowing, hematemesis, melena, nausea, poor appetite, poor fluid intake, rectal bleeding, rectal pain, vomiting, others Genitourinary: denies: abnormal vagina bleeding, burning, dyspareunia, dysuria, flank pain, frequency, hematuria, incontinence, pain, , vagina discharge, urgency, others Neurological: denies: dizziness, fainting, headache, left sided numbness, left sided weakness, numbness, paresthesia, pre-existing deficit, right sided numbness, right sided weakness, seizure, speech problems, tingling, tremors, weakness, others Musculoskeletal: denies: back pain, gout, joint pain, joint swelling, muscle pain, muscle stiffness, neck pain, others Integumetry: denies: bruises, change in color, change in hair/nails, dryness, laceration, lesions, lumps, rash, wounds, others Allergic/Immunocompromised: denies: Difficulty Healing, Frequent Infections, Hives, Itching, others Physical Exam General Appearance: No Apparent Distress, Normal HEENT: Normal ENT Inspection, Pharynx Normal, TMs Normal Neck: Full Range of Motion, Non-Tender, Normal, Normal Inspection Respiratory: Chest Non-Tender, Lungs Clear, No Accessory Muscle Use, No Respiratory Distress, Normal Breath Sounds Cardiovascular: No Edema, No JVD, No Murmur, No Gallop, Normal Peripheral Pulses, Regular Rate/Rhythm Breast Exam: Deferred Gastrointestinal: No Organomegaly, Non Tender, No Pulsatile Mass, Normal Bowel Sounds, Soft Genitalia: Deferred Pelvic: Deferred Rectal: Deferred Extremities: No calf tenderness, Normal capillary refill, Normal inspection, Normal range of motion, Non-tender, No pedal edema Musculoskeletal : Apperance: Normal Neurologic: Alert, pot liner II-XII nml as Tested, No Motor Deficits, Normal Affect, Normal Mood, No Sensory Deficits Cerebellar Function: Normal Reflexes: Normal Skin: Dry, Normal Color, Warm Lymphatic: No Adenopathy Was a procedure done? Was a procedure done?: No Differential Dx Differential Diagnosis: Bronchitis, Pneumonia, Pulmonary Embolism X-Ray, Labs, Meds, VS Vital Signs Date Time Temp Pulse Resp B/P (MAP) Pulse Ox O2 Delivery O2 Flow Rate FiO2 03/18/24 23:50 97.7 103 18 118/74 (89) 94 X-Ray, Labs, Meds, VS Comment Oxygen tank was replaced with a full tank. O2 saturation back up to 94% on 2 L. Patient he was sent home, advised to call home health tomorrow morning. If take friend's house she was advised to come back to the emergency department for new take. Time of 1ST Reevaluation: 00:43 Reevaluation 1ST: Improved Patient Education/Counseling: Diagnosis, Treatment, Need For Follow Up (Patient advised to follow-up in the emergency room in the next 24 to 48 hours if symptoms do not improve. Advised follow-up with PCP in the next 3 to 5 days. Patient verbalized understanding. ) Family Education/Counseling: Diagnosis Departure 1 Departure Time of Disposition: 00:42 Impression: Primary Impression: Acute hypoxic respiratory failure Additional Impression: Pulmonary embolism Qualified Codes: I26.99 - Other pulmonary embolism without acute cor pulmonale Disposition: 01 HOME / SELF CARE / HOMELESS Condition: Fair Discharged With: Self Critical Care Note Critical Care Time?: No Stability Stability form required: No Heart Score Heart Score: Heart Score Response (Comments) Value History N/A 0 EKG N/A 0 Age N/A 0 Risk Factors N/A 0 Troponin N/A 0 Total 0 JOSI BILLINGS Mar 19, 2024 00:43
== END 2024-03-19 00:35 | disposition home or self-care (01) ==
LOC: ER 23:39
DX: J96.01 Acute respiratory failure with hypoxia (principal); I26.99 Other pulmonary embolism without acute cor pulmonale